=== PATIENT | male | born 1975 | race Caucasian/White ===

== ENCOUNTER 2018-11-27 09:11 | Emergency (ER) | payer MEDICAID, SELFPAY ==
[2018-11-27] VITALS (25 sets, daily range): BP systolic 148–165; BP diastolic 86–106; PULSE 84–98; RESP 9–20; TEMP 37; O2SAT 93–99
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
[2018-11-27] MEDS: Normal Saline 1,000 ML 150 ML IV (09:30)
[2018-11-27 09:33] LABS: Absolute Basophil Count 0.01 k/cumm (0.0-0.2); Absolute Eosinophil Count 0.09 k/cumm (0.0-0.7); Absolute Lymphocyte Count 0.87 k/cumm (1.2-3.4); Absolute Monocyte Count 0.46 k/cumm (0.11-0.7); Absolute Neutrophil Count 4.21 k/cumm (1.2-6.7); Basophils % 0.2; Eosinophils % 1.6; HCT 39.9 % (40.0-50.0); HGB 13.2 g/dL (13.5-17.5); Lymphocytes % 15.4; Mean Corp. HGB Concentration 33.1 g/dL (32.0-36.0); Mean Corpuscular Hemoglobin 29.3 pg (27.0-33.0); Mean Corpuscular Volume 88.7 fL (80-95); Mean Platelet Volume 9.9 fL (8.0-11.0); Monocytes % 8.2; Neutrophils % 74.6; Platelet Count 213 x1000/uL (130-400); RBC Distribution Width 13.8 % (11.8-14.1); White Blood Cell Count 5.64 k/cumm (4.4-10.8)
[2018-11-27 09:53] LABS: ALT 17 U/L (12-78); Albumin 3.3 g/dL (3.4-5.0); Alkaline Phosphatase 100 U/L (46-116); Anion Gap 6.2 mmol/L (3-11); BUN 7 mg/dL (7-18); Bilirubin, Total 0.4 mg/dL (0.2-1.0); CO2 30.8 mmol/L (21.0-32.0); Calcium 8.7 mg/dL (8.5-10.1); Chloride 103 mmol/L (98-107); Glucose 106 mg/dL (70-100); Magnesium 1.9 mg/dL (1.8-2.4); Potassium 3.9 mmol/L (3.5-5.1); Sodium 140 mmol/L (136-145); Total Protein 7.1 g/dL (6.4-8.2)
[2018-11-27 10:00] LABS: ETHANOL BLOOD < 3.0 mg/dL (<3)
[2018-11-27 10:02] LABS: AST < 5 U/L (15-37); Troponin I < 0.05 ng/mL (0.00-0.06)
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
== END 2018-11-27 11:37 | disposition home or self-care (01) ==
PROVIDERS: Emergency Provider Emergency Medicine; PCP Family Medicine
DX: M54.2 Cervicalgia (principal); R07.9 Chest pain, unspecified; V43.52XA Car driver injured in collision with other type car in traffic accident, initial encounter
CPT/HCPCS: 36415; 74177; 80053; 93005; 96360; 96361; 99285; 70450; 71260; 72125; 80320; 83735; 84484; 85025; 93010; 99284

== ENCOUNTER 2021-05-17 17:40 | Emergency (ER) | payer MEDICAID, SELFPAY ==
[2021-05-17 17:44] VITALS: BP 114/69; PULSE 69; TEMP 36.7; O2SAT 97
[2021-05-17 18:25] LABS: Abs Immature Grans 0.02 10^3/uL (0.0-0.06); Absolute Basophil Count 0.03 10^3/uL (0.0-0.2); Absolute Eosinophil Count 0.12 10^3/uL (0.0-0.7); Absolute Lymphocyte Count 0.91 10^3/uL (1.2-3.4); Absolute Monocyte Count 0.49 10^3/uL (0.1-0.8); Absolute Neutrophil Count 5.01 10^3/uL (1.2-6.7); Basophils % 0.5; Eosinophils % 1.8; HCT 49.7 % (40.0-50.0); HGB 16.4 g/dL (13.5-17.5); Immature Grans % 0.3; Lymphocytes % 13.8; MCH 30.3 pg (27.0-33.0); MCV 91.7 fL (80-95); Monocytes % 7.4; Neutrophils % 76.2; Nucleated RBC 0 %; RBC 5.42 10^6/uL (4.36-5.78); RDW 12.1 % (11.8-14.1); RDW-SD 40.8 fL; WBC 6.58 10^3/uL (4.4-10.8)
--- NOTE | 2021-05-17 18:25 | DI.CT_ITS ---
Exam(s) CT ABDOMEN PELVIS WO EXAM: CT ABDOMEN PELVIS WO CLINICAL HISTORY: right flank pain/lumbar pain, urinary retention. TECHNIQUE: Imaging Protocol: Axial computed tomography images with coronal and sagittal reformatted images were created and reviewed CONTRAST MATERIAL: Intravenous: none Oral: None COMPARISON: CT CT CHEST/ABD/PEL W from 11/27/2018 FINDINGS: VISUALIZED LUNG BASES: No nodules nor pleural effusions evident. ABDOMEN: There is no ascites. LIVER: There is an 8 x 8 millimeter cyst in the superior right hepatic lobe, unchanged from the prior study. No other obvious focal hepatic lesions on this non few study and no obvious steatosis. GALLBLADDER/BILIARY: The gallbladder is contracted and difficult to evaluate. There are no calcified gallstones noted. No obvious dilatation of intrahepatic ducts. CBD is not dilated. PANCREAS: No evidence of pancreatic mass nor dilatation of the pancreatic duct. SPLEEN: Spleen is not enlarged. No obvious intrasplenic lesions. ADRENALS: There are no significant adrenal masses. KIDNEYS:Left kidney is unremarkable. There is a 2 millimeter calculus again noted in the lower pole calyx of the right kidney, unchanged. However, the other previously present similar size midpole lev el calculus is no longer seen in the kidney and is most probably passed down the ureter into the blad neil. The sagittal images reveal a tiny hyperdensity in the dependent aspect of the bladder which is possibly this calculus. No cysts nor masses evident in the kidneys, however, there is a focal area o f wall thickening in the posterior wall of the urinary bladder left of center which measures approxim ately 8 by 5 millimeters and may represent early neoplasm. Cystoscopy recommended. ABDOMINAL AORTA: Abdominal aorta is not enlarged. LYMPH NODES: There is no retroperitoneal nor paraaortic adenopathy. ABDOMINAL WALL: There is no anterior abdominal hernia but there does appear to be a fat containing le ft inguinal hernia. No bowel loops within the hernia sac. GI: There is no evidence of bowel obstruction, free air, nor abscess. Slightly prominent but in not obstructive appearing small bowel loops are seen left side of the abdom en, measuring up to 2.4 cm diameter. No free air. PELVIS: LYMPH NODES: There is no intrapelvic nor inguinal adenopathy. GI: No evidence of appendicitis.No evidence of sigmoid diverticulitis. URINARY BLADDER: As above. Cystoscopy recommended. REPRODUCTIVE: Prostate size upper normal. No obturator adenopathy. OSSEOUS: No significant osseous lesions. IMPRESSION: 1. There is a 2 millimeter nonobstructive calculus in lower pole the right kidney, unchanged in size and position from prior CT scan of November 2018. The other similar size tiny calculus which was previou sly present in the right kidney is no longer seen and most probably passed into the urinary bladder. Left kidney appears unremarkable. There is no hydronephrosis on either side. No renal masses. 2. There is a focal area of bladder wall thickening left of center which require cystoscopy to rule o ut neoplasm. 3. Solitary benign 8 millimeter hepatic cyst, previously present 2018. No new ominous focal hepatic lesions. 4. Gallbladder is contracted and difficult to evaluate. There is no dilatation of the biliary tree. 5. There are slightly prominent jejunal loops in left side of the abdomen, difficult to evaluate wit hout oral contrast within the lumen may represent element of enteritis/ileus. There is no obvious donaldo wel obstruction. There is no ascites. RADIATION DOSE DELIVERED: 644.36mGy.cm Total DLP DATA REPOSITORY: All CT scans at this facility are submitted to the National Radiology Data Registry (NRDR) Dose Index Registry (DIR) with the [employer] (A[employer]). RADIATION OPTIMIZATION: All CT scans at this facility use at least one of these dose optimization te chniques: automated exposure control; mA and/or kV adjustment per patient size (includes targeted exa ms where dose is matched to clinical indication); or iterative reconstruction.
[2021-05-17] MEDS: Normal Saline 1,000 ML 1000 ML IV (18:30)
[2021-05-17 18:33] LABS: ALT 20 U/L (16-63); AST 12 U/L (15-37); Albumin 3.9 g/dL (3.4-5.0); Alkaline Phosphatase 97 U/L (46-116); Anion Gap 4.5 mmol/L (3-11); BUN 16 mg/dL (7-18); Bilirubin, Total 0.3 mg/dL (0.2-1.0); C-Reactive Protein 0.08 mg/dL (0.0-0.3); CO2 31.5 mmol/L (21.0-32.0); CREATININE 1.1 mg/dL (0.70-1.30); Calcium 8.9 mg/dL (8.5-10.1); Chloride 103 mmol/L (98-107); Glucose 108 mg/dL (74-106); Lipase 95 U/L (73-393); Potassium 4.8 mmol/L (3.5-5.1); Sodium 139 mmol/L (136-145)
--- NOTE | 2021-05-17 18:56 | SUR.PHASEI ---
pt unable to void pt with 360ml urine residual in bladder
--- NOTE | 2021-05-17 19:13 | ED.GENADUL_ITS ---
Discharge Plan Disposition Patient Disposition: HOME Condition: Stable Discharge Details Clinical Impression: Dysuria Primary Care Provider: Tripp Caldwell ED Provider: Bina Calloway Home Meds and New Rx's Prescriptions: Continued metoprolol succinate 200 mg Tablet Extended Release 24 Hr 200 mg PO DAILY RF: 0 omeprazole 20 mg Capsule,Delayed Release(Dr/Ec) 20 mg PO DAILY RF: 0 gabapentin 400 mg Capsule 400 mg PO DAILY RF: 0 clonidine HCl 0.1 mg Tablet 0.1 mg PO QHS RF: 0 gabapentin 600 mg Tablet Extended Release 24 Hr 1,200 mg PO QPM RF: 0 Discharge Instructions Instructions: Dysuria (ED) Additional Instructions: please follow-up with pcp and urologist for cystoscopy and further evaluation of a mass in your bladder you have not been able to supply a urine speciment and have not been completely evaluated Should you have persistent symptoms in the unable to urinate, you may need a Sun catheter placed, you have declined this at this time Please bring a urine specimen back to the labs here approximately 1 hour after you urinate, do not refrigerate it, use the urine specimen supplied You may also strain your urine Take ibuprofen and Tylenol as needed for pain Referrals: Rakesh Alicea MD [ [facility] STAFF PHYSICIAN] - Tripp Caldwell [Primary Care Provider] - Medical Decision Making Patient moving bowels, no evidence of ileus, nontender abdominal exam No evidence of small bowel Bladder mass, concerning with need for close outpatient follow-up, placed on urology follow-up with Unfortunately patient was unable to give a urine specimen, he states that he is too anxious to give a urine specimen at this time He is alert, oriented, of decisional capacity and is aware that he has not been fully evaluated He is afebrile and nontoxic in appearance It is concerning that patient does have a urinary complaint and is unable to give us a urine specimen, he is aware that he has 400 cc in his bladder and he may continue to retain, did recommend Sun catheter placement versus straight catheterization and patient has declined both He is alert, oriented, of decisional capacity He will need close outpatient follow-up with urology and he is given a urine lab slip to return at his earliest ability He is discharged home in stable lab He is afebrile nontoxic He is aware that he may have passed a stone He is supplied with a strainer for home Medical Records Medical records reviewed: Yes I reviewed the patient's medical records. Lab Data Lab results reviewed: Yes I reviewed the patient's lab results. HPI General Mode of arrival: ambulatory . Date/Time Provider Initiated Documentation: 05/17/21 17:41 . Limitations to Documentation: no limitations . Information obtained by: patient . HPI Narrative: This 46-year-old gentleman presents with right flank pain and difficulty urinating. He states that the pain started on Sunday and has been constant. He denies nausea or vomiting or history of similar pain in the past. He denies any fever or chills. He denies any urethral discharge or risk of sexually transmitted disease. He denies any new medications. He does smoke crack daily. He denies any IV drug use for the past 3 years. He denies any hematuria. He denies any diarrhea. Denies known exacerbating or alleviating factors. Describes the pain as sharp in the right flank. Denies radiation. Related Data Home Medications Medication Instructions Recorded Confirmed clonidine HCl 0.1 mg PO QHS 11/27/18 11/27/18 gabapentin 1,200 mg PO QPM 11/27/18 11/27/18 gabapentin 400 mg PO DAILY 11/27/18 11/27/18 metoprolol succinate 200 mg PO DAILY 05/17/21 05/17/21 omeprazole 20 mg PO DAILY 05/17/21 05/17/21 Allergies Allergy/AdvReac Type Severity Reaction Status Date / Time No Known Allergies Allergy Unverified 05/17/21 17:48 General Stated Complaint: Urinary PRADEEP: 3 Review of Systems All systems reviewed & are unremarkable except as noted in HPI and below PFSH All Active Problems (Updated 05/17/21 @ 20:05 by VALERIA Hill) Dysuria (Acute) Social History Smoking/Tobacco Use Status: Former Tobacco Use Smoking risk assessment performed?: Yes Alcohol Intake: former Drug use: Never Substance use type: former substance user Additional Social history: Patient states he is homeless. Exam Const General: cooperative, comfortable and no acute distress Eyes Sclera: sclerae normal Resp Effort & Inspection: normal respiratory effort Auscultation: clear to auscultation bilaterally Cardio Rate: regular rate Rhythm: regular rhythm GI Other: Nontender abdominal exam, no CVA tenderness, no midline tenderness, no abdominal bruit or pulsatile mass Skin General skin exam: no rashes or lesions noted Neuro General: patient alert and patient oriented x3 Extrem Other: Distal pulses intact, no calf swelling or tenderness Course Vital Signs Vital signs: Vital Signs Temperature 36.7 C 05/17/21 17:44 Pulse 69 05/17/21 17:44 Blood Pressure 114/69 05/17/21 17:44 Pulse Oximetry 97 05/17/21 17:44 Temperature 36.7 C 05/17/21 17:44 Temperature Source Temporal Artery Scan 05/17/21 17:44 Pulse 69 05/17/21 17:44 Respiratory Effort Non-Labored 05/17/21 18:17 Blood Pressure 114/69 05/17/21 17:44 Blood Pressure Position Sitting 05/17/21 17:44 Pulse Oximetry 97 05/17/21 17:44 Oxygen Delivery Method Room Air 05/17/21 17:44 Oxygen Flow Rate 0 05/17/21 17:44 Pain Level 1 05/17/21 17:44 Lab/Test Results Lab/Test Results: Laboratory Tests Range/Units 05/17/21 05/17/21 18:10 18:10 WBC (4.4-10.8) 10^3/uL 6.58 RBC (4.36-5.78) 10^6/uL 5.42 Hgb (13.5-17.5) g/dL 16.4 Hct (40.0-50.0) % 49.7 MCV (80-95) fL 91.7 MCH (27.0-33.0) pg 30.3 MCHC (32.0-36.0) % 33.0 RDW (11.8-14.1) % 12.1 Plt Count (130-400) 10^3/uL MPV (8.0-11.0) fL Immature Gran % 0.3 Neutrophils % 76.2 Lymphocytes % 13.8 Monocytes % 7.4 Eosinophils % 1.8 Basophils % 0.5 Nucleated RBC % % 0 Absolute Neutrophils (1.2-6.7) 10^3/uL 5.01 Absolute Lymphocytes (1.2-3.4) 10^3/uL 0.91 L Absolute Monocytes (0.1-0.8) 10^3/uL 0.49 Absolute Eosinophils (0.0-0.7) 10^3/uL 0.12 Absolute Basophils (0.0-0.2) 10^3/uL 0.03 Sodium (136-145) mmol/L 139 Potassium (3.5-5.1) mmol/L 4.8 Chloride (98-107) mmol/L 103 Carbon Dioxide (21.0-32.0) mmol/L 31.5 Anion Gap (3-11) mmol/L 4.5 BUN (7-18) mg/dL 16 Creatinine (0.70-1.30) mg/dL 1.1 Estimated GFR/1.73 m2 (mL/min/1.73m2) >= 60.00 Glucose (74-106) mg/dL 108 H Calcium (8.5-10.1) mg/dL 8.9 Total Bilirubin (0.2-1.0) mg/dL 0.3 AST (15-37) U/L 12 L ALT (16-63) U/L 20 Alkaline Phosphatase (46-116) U/L 97 C-Reactive Protein (0.0-0.3) mg/dL 0.08 Total Protein (6.4-8.2) g/dL 8.0 Albumin (3.4-5.0) g/dL 3.9 Lipase (73-393) U/L 95
--- NOTE | 2021-05-17 19:19 | DI.VRAD_ITS ---
PROCEDURE INFORMATION: Exam: CT Abdomen And Pelvis Without Contrast Exam date and time: 05/17/2021 6:10 PM Age: 46 years old Clinical indication: Abdominal pain; Generalized; Patient HX: Right flank pain/lumbar pain, urinaty retention. TECHNIQUE: Imaging protocol: Computed tomography of the abdomen and pelvis without contrast. Radiation optimization: All CT scans at this facility use at least one of these dose optimization techniques: automated exposure control; mA and/or kV adjustment per patient size (includes targeted exams where dose is matched to clinical indication); or iterative reconstruction. COMPARISON: CT CHEST/ABD/PEL W 11/27/2018 10:06 AM FINDINGS: Liver: Again noted is a sub cm low-dense lesion within the right hepatic lobe which is too small to characterize but likely represents a benign cyst or biliary hamartoma. Gallbladder and bile ducts: The gallbladder is contracted and is not well evaluated, but there is no evidence for acute gallbladder inflammation. No gallstones are identified. There is no biliary ductal dilatation. Pancreas: Normal. No ductal dilation. Spleen: Normal. No splenomegaly. Adrenal glands: Normal. No mass. Kidneys and ureters: No ureteral stones are identified. There is no hydronephrosis or hydroureter. There is a 2 x 3 mm nonobstructing right lower pole renal stone, unchanged. The prior punctate nonobstructing right renal stone on image 671, series 5 of the prior study is no longer present. Stomach and bowel: There are multiple mildly dilated loops proximal small bowel measuring up to 3 cm diameter, without clear transition point. There is no clear evidence for bowel inflammation. Appendix: No evidence of appendicitis. Intraperitoneal space: Unremarkable. No free air. No significant fluid collection. Vasculature: Unremarkable. No abdominal aortic aneurysm. Lymph nodes: Unremarkable. No enlarged lymph nodes. Urinary bladder: There is a punctate dependent hyperdensity within the posterior aspect of the bladder lumen on image 736, series 3, which could represent a punctate bladder stone. There is a focal region of mild lobular bladder wall thickening having a transverse dimension of 1.3 cm, as seen on axial image 756, series 3, and a craniocaudal dimension of 0.7 cm, as seen on sagittal image 51, series 5. The bladder wall has a thickness of 4 mm in this region. This lesion was not clearly present on prior study and could represent early bladder neoplasm. Reproductive: There is increased mild lobular soft tissue extending anteriorly from the prostate into the posterior midline bladder region around image 800, series 3, suggesting benign prostatic hypertrophy. Bones/joints: Unremarkable. No acute fracture. Soft tissues: Unremarkable. IMPRESSION: 1. Possible punctate bladder stone. There was a punctate right renal stone on prior study that is no longer present, and findings could represent recent passage of this stone into the bladder. There is no hydronephrosis. 2. 2 x 3 mm nonobstructing right renal stone, as on prior study. 3. New focal region of wall thickening of the left posterior aspect of the bladder as described above, could represent early bladder neoplasm. Recommend correlation with cystoscopy. 4. Multiple mildly dilated loops of proximal small bowel, new since prior study, without transition point. Findings could reflect mild enteritis with ileus. Recommend clinical correlation. Dictated and Authenticated by: Fawad Schwab MD. Ordering:ALANIS Curran MD
--- NOTE | 2021-05-17 20:09 | NUR.NOTE ---
Addendum entered by Rosa Maria Yu 05/17/21 20:45: [facility] Urology fax machine not answering after multiple attempts, will put referral in Care Management box to f/u on 05/18/21. Original Note: Referral faxed to [facility] Urology Dr Alicea to f/u pricila for Bladder Mass.Nursing Note:
[2021-05-17 23:20] LABS: Bilirubin Negative (Negative); Blood Negative (Negative); Clarity Cloudy (Clear); Glucose Negative (Negative); Ketones Negative (Negative); Leukocyte Esterase Negative (Negative); Nitrite Negative (Negative); Urobilinogen 0.2 EU/dL (Up TO 0.2); pH 7.5 (5-8)
--- NOTE | 2021-05-18 08:48 | NUR.NOTE ---
[facility] Urology will refer to this note for the referral due to fax machine not working. For [facility] Urology, bladder mass, [place], PCP: Tripp Caldwell; ED Provider: Bina Calloway; home [phone], cell [phone]. Susy Negrete Nursing Note:
== END 2021-05-17 20:12 | disposition home or self-care (01) ==
PROVIDERS: Emergency Provider Physician Assistant; PCP Family Medicine
DX: R30.0 Dysuria (principal); Z53.29 Procedure and treatment not carried out because of patient's decision for other reasons; R10.9 Unspecified abdominal pain; R33.9 Retention of urine, unspecified; N32.89 Other specified disorders of bladder
CPT/HCPCS: 36415; 80053; 83690; 96360; 99284; 74176; 81003; 85025; 86140; 99283

== ENCOUNTER 2024-07-21 02:57 | Inpatient (IN) | payer SELFPAY ==
[2024-07-21] VITALS (47 sets, daily range): BP systolic 166–238; BP diastolic 107–137; PULSE 62–130; RESP 10–29; TEMP 36.2–36.9; O2SAT 91–100
--- NOTE | 2024-07-21 | DI.US_ITS ---
Exam(s) US EXTREMITY VENOUS BI EXAM: US EXTREMITY VENOUS BI CLINICAL HISTORY: PE. TECHNIQUE: Bilateral lower extremity venous ultrasound performed using grayscale, color-flow, and sp ectral Doppler analysis. COMPARISON: No exams were available for comparison FINDINGS: The bilateral common femoral, femoral and popliteal veins demonstrate normal compressibility, augment ation, and color Doppler. The posterior tibial and peroneal veins are patent. No superficial venous thrombosis. IMPRESSION: Right: Negative for DVT Left: Negative for DVT DATA REPOSITORY:
--- NOTE | 2024-07-21 | DI.US_ITS ---
Exam(s) US UPPER EXTREMITY VENOUS LT EXAM: US UPPER EXTREMITY VENOUS LT CLINICAL HISTORY: PE, attn: supraclavicular fossa and volar forearm TECHNIQUE: GRAYSCALE, COLOR, DOPPLER IMAGING OF THE VENOUS SYSTEM OF THE UPPER EXTREMITY-BILATERAL COMPARISON: US POCUS EXAM from 07/21/2024 FINDINGS: There is a short-segment superficial vein thrombosis in the medial cubital fossa/cephalic vein at the level the antecubital fossa. Approximately 1 cm length clot length. Basilic vein: Patent. Normal color-flow and normal compression and augmentation properties. Brachial vein(s):Patent. Normal color flow. Normal compression and augmentation properties. Cephalic vein:Patent. Normal color flow. Normal compression and augmentation properties. Axillary vein: Patent. Normal color flow. Normal compression and augmentation properties. Visualized subclavian vein: Patent. No obvious intraluminal thrombus. IMPRESSION: There is a short segment intraluminal clot approximately 1 cm length within the median cubital vein ( elbow level). DATA REPOSITORY:
--- NOTE | 2024-07-21 02:45 | RT.EKG_ITS ---
APPROVED REPORT Exam: Resting ECG Reason for Exam: chest pain Patient Location: E HR:118 bpm ECG Measurements Heart Rate 118 AXIS CO 153 P 73 QRSd 80 QRS 48 QT 324 T 59 QTc 455 Conclusion Sinus tachycardia...rate> 99 Probable left atrial enlargement...P >50mS, <-0.10mV V1 Probable left ventricular hypertrophy...multiple LVH criteria I have reviewed and interpreted ECG and agree with software generated interpretation.
--- NOTE | 2024-07-21 03:15 | DI.CT_ITS ---
Exam(s) CT THORAX ABD/PEL CTA EXAM: CT THORAX ABD/PEL CTA CLINICAL HISTORY: stabbing RUQ L chest pain, coke use, severe HTN. TECHNIQUE: Imaging Protocol: Axial computed tomography images with coronal and sagittal reformatted images were created and reviewed CONTRAST MATERIAL: Intravenous: Omnipaque 350 Contrast volume:100 ml Oral: None COMPARISON: CT CT ABDOMEN PELVIS WO from 05/17/2021 FINDINGS: CHEST: AORTA: The ascending thoracic aorta is normal diameter. There is no evidence of aortic dissection. The aortic arch and descending thoracic aorta appear unremarkable as does the abdominal aorta. No ev idence of aneurysm nor significant atherosclerotic disease in the abdominal aorta nor at the level th e aortic bifurcation and iliac arteries. No significant atherosclerotic disease in the renal arterie s nor in the celiac, SMA, and DIONICIO arteries. Also no aneurysmal dilatation the aortoiliac segments as well as the common femoral arteries. PULMONARY ARTERIES: There is occlusive intraluminal filling defect in the subsegmental right pulmonar y artery branch in the lateral basal segment of the right lower lobe. There is a pleural based densi ty associated with this consistent with a small area of pulmonary infarction. LUNGS: In addition to the above, there are also mild increased markings in the posterior basal segmen t of the right lower lobe and there is a tiny amount x of right pleural fluid. No significant left l kavon findings. No findings in the trachea and mainstem bronchi. There is no bronchiectasis. MEDIASTINUM: There is no hilar nor mediastinal adenopathy. Visualized thyroid unremarkable. CARDIAC: Heart size is normal. There is no pericardial effusion. Ventricular ratio is 1:1. There i s no prominent reflux of intravenous contrast into the intrahepatic IVC ABDOMEN: There is no evidence of abdominal aortic aneurysm nor dissection.There is no aneurysmal dilatation of the common iliac arteries.The celiac and superior mesenteric arteries are patent. There is no ascites. LIVER: There is a focal subcapsular hypodensity in the right hepatic lobe consistent with a probable benign cyst or hemangioma measuring approximately 1 cm x 1 cm. GALLBLADDER/BILIARY: No obvious gallbladder pathology. CBD is not dilated. PANCREAS: No evidence of pancreatic mass nor dilatation of the pancreatic duct. SPLEEN: Spleen is not enlarged. There are no intrasplenic lesions. Splenic and portal veins are ignacio nt. ADRENALS: There are no significant adrenal masses. KIDNEYS: No cysts evident. No calculi nor hydronephrosis. No solid renal masses. ABDOMINAL AORTA: The abdominal aorta is not enlarged. LYMPH NODES: There is no retroperitoneal nor para-aortic adenopathy. No obvious mesenteric masses. ABDOMINAL WALL: No evidence of significant anterior abdominal wall hernia. GI: There is no evidence of bowel obstruction, free air, nor abscess. PELVIS: LYMPH NODES: There is no intrapelvic nor inguinal adenopathy. GI: No evidence of appendicitis.No evidence of sigmoid diverticulitis. URINARY BLADDER: No calculi nor masses evident REPRODUCTIVE: Prostate size is upper normal. OSSEOUS: No significant osseous lesions. No fractures. IMPRESSION: 1. There is an occlusive subsegmental right lower lobe pulmonary embolus hand there is no associated small pulmonary infarction as described above. There is a tiny ipsilateral right pleural effusion. Also mildly increased markings noted in the posterior basal segment of the right lower lobe. No sign ificant left lung findings. 2. Ventricular ratio in the heart is approximately 1:1 3. No evidence of aortic dissection or pericardial effusion. 4. There is a 1 cm lesion in the right hepatic lobe which has benign appearance, either cyst or heman gioma. Clinically indicated this can be followed up, starting with ultrasound. No other significant findings in the abdomen/pelvis RADIATION DOSE DELIVERED: 541.86mGy.cm Total DLP DATA REPOSITORY: All CT scans at this facility are submitted to the National Radiology Data Registry (NRDR) Dose Index Registry (DIR) with the [employer] (ACR). RADIATION OPTIMIZATION: All CT scans at this facility use at least one of these dose optimization te chniques: automated exposure control; mA and/or kV adjustment per patient size (includes targeted exa ms where dose is matched to clinical indication); or iterative reconstruction.
--- NOTE | 2024-07-21 03:15 | DI.CT_ITS ---
Exam(s) CT HEAD WO EXAM: CT HEAD WO CLINICAL HISTORY: R arm weak, LARRY, HTN, IVDU/cok, eval abscess/stroke. TECHNIQUE: Imaging Protocol: Axial computed tomography images with coronal and sagittal reformatted images were created and reviewed COMPARISON: CT CT HEAD CERVICAL SPINE WO from 11/27/2018 FINDINGS: There are no skull fractures. There is no fluid in the visualized paranasal sinuses. There is no evidence of intracranial hemorrhage, mass effect, or shift of midline structures. There are no extra-axial fluid collections. The ventricles are not enlarged or shifted and there is no blo od within the ventricular system nor within the basal cisterns. IMPRESSION: No acute intracranial findings on this noninfused CT scan of the brain. RADIATION DOSE DELIVERED: 832.41mGy.cm Total DLP DATA REPOSITORY: All CT scans at this facility are submitted to the National Radiology Data Registry (NRDR) Dose Index Registry (DIR) with the [employer] (ACR). RADIATION OPTIMIZATION: All CT scans at this facility use at least one of these dose optimization te chniques: automated exposure control; mA and/or kV adjustment per patient size (includes targeted exa ms where dose is matched to clinical indication); or iterative reconstruction.
--- NOTE | 2024-07-21 03:20 | W.ED.GENAD ---
Discharge Plan Disposition Patient Disposition: Admit to [facility] Condition: Good Discharge Details Chief Complaint: Abd Prob Clinical Impression: Pulmonary embolism, Cellulitis of arm, left, Cellulitis of neck, Active intravenous drug use Primary Care Provider: Tripp Caldwell ED Provider: August Pleitez Home Meds and New Rx's Prescriptions: No Action metoprolol succinate 200 mg Tablet Extended Release 24 Hr 200 mg PO DAILY omeprazole 20 mg Capsule,Delayed Release(Dr/Ec) 20 mg PO DAILY HPI General Date/Time Provider Initiated Documentation: 07/21/24 03:06. HPI Narrative: 49-year-old male with past medical history of IV drug use including fentanyl and cocaine use within the last week, previous kidney stones, presents today for evaluation of right upper quadrant pain. Patient states that about 1 hour prior to arrival he developed severe cramping in the right upper quadrant. He had a single episode of vomiting. Pain seems to come and go in severity. Currently it is mildly achy. He also admitted to a brief episode of left-sided chest discomfort. He denies fever or chills. He does admit to new spot of redness in his left wrist and his left arm, both of which are places near to which she has used IV drugs. He denies any diarrhea. He does admit to chronic headaches. He does admit to hypertension that is uncontrolled. No other complaints at this time. Related Data Home Medications ?Medication ?Instructions ?Recorded ?Confirmed metoprolol succinate 200 mg 200 mg PO DAILY 05/17/21 07/21/24 tablet,extended release 24 hr omeprazole 20 mg capsule,delayed 20 mg PO DAILY 05/17/21 07/21/24 release Allergies Allergy/AdvReac Type Severity Reaction Status Date / Time No Known Allergies Allergy Unverified 07/06/21 13:06 General Stated Complaint: Abd Prob PRADEEP: 3 Exam Narrative Exam Narrative: 1.Const: Well-nourished, Well-developed, appearing stated age 2.Eyes: PERRL, no conjunctival injection, and symmetrical lids. 3.ENT: Atraumatic external nose and ears. Moist MM. Neck: Symmetric, trachea midline, No thyromegaly. Patient demonstrates good movement of cervical neck. There is no nuchal rigidity, no nuchal tenderness. Patient is able to flex the neck without any difficulty or significant pain. Negative Kernig's and Brudzinski sign. 4.CVS: +S1/S2, Peripheral pulses 2+ and equal in all extremities. Brisk capillary refill in all extremities. 5.RESP: Unlabored respiratory effort. Clear to auscultation bilaterally. No wheezes rales or rhonchi 6.GI: Soft, no guarding or rebound. Mild right upper quadrant tenderness. Positive Yoo sign. No pain McBurney's point. 7.MSK: Normocephalic/Atraumatic, Extremities w/o deformity or ttp No cyanosis or clubbing, Normal movement of all extremities 8.Skin: Warm, Dry. Oval shaped area of erythema on the ventral left wrist. No fluctuance to suggest abscess. Mild redness area of erythema on the left neck, no fluctuance to suggest large abscess. 9.Neuro: data entry assistant II-XII grossly intact. Sensation grossly intact, no focal neurologic deficits. 10.Psych: (AAO) x3. Appropriate mood and affect Course Vital Signs Vital signs: Vital Signs Temperature 36.4 C 07/21/24 03:01 Pulse 113 H 07/21/24 03:01 Respiratory Rate 24 07/21/24 03:01 Blood Pressure 212/115 H 07/21/24 03:01 Pulse Oximetry 97 07/21/24 03:01 Temperature 36.4 C 07/21/24 03:01 Temperature Source Oral 07/21/24 03:01 Pulse 117 H 07/21/24 03:10 Pulse 118 H 07/21/24 03:10 Respiratory Rate 18 07/21/24 03:10 Blood Pressure 212/115 H 07/21/24 03:05 Blood Pressure Mean 146 07/21/24 03:05 Blood Pressure Position Supine 07/21/24 03:01 Pulse Oximetry 97 07/21/24 03:10 Oxygen Delivery Method Room Air 07/21/24 03:01 Oxygen Flow Rate 0 07/21/24 03:01 Pain Level 10 07/21/24 03:05 Procedure EJ/Peripheral IV/Phlebotomy Date of Procedure: 07/21/24 Time of Procedure: 05:28 Indication: Nursing/tech could not get IV Skin Cleansed in Sterile Fashion: Yes Laterality: Left Insertion Site: Antecubital Size & Type: 18 ga. Number ofAttempts(See previous attempts in note section): 1 Dressing: IV Dressing Placed and Tegaderm Applied Ultrasound: Used/Image Saved Estimated Blood Loss: minimal Reason for Blood Draw by Provider: RN/lab vladislav and MD to place line Procedure Outcome: Successful Medical Decision Making 49-year-old male with past medical history of IV drug use including fentanyl and cocaine use within the last week, previous kidney stones, presents today for evaluation of right upper quadrant pain. Patient states that about 1 hour prior to arrival he developed severe cramping in the right upper quadrant. He had a single episode of vomiting. Pain seems to come and go in severity. Currently it is mildly achy. He also admitted to a brief episode of left-sided chest discomfort. He denies fever or chills. He does admit to new spot of redness in his left wrist and his left arm, both of which are places near to which she has used IV drugs. He denies any diarrhea. He does admit to chronic headaches. He does admit to hypertension that is uncontrolled. No other complaints at this time. Exam demonstrates right upper quadrant tenderness which is reproducible, mild redness in the left wrist and left neck. No murmur is auscultated well at this time. Symptoms do not appear consistent with endocarditis at this time. Differential is broad for the abdomen, but includes cholecystitis, biliary colic. Vascular pathology is of concern especially with the patient's crack cocaine use. Patient is notably hypertensive right now which could be secondary to his cocaine use but also pain or underlying hypertension. Will get imaging of these concerning areas, evaluate for cardiac dysfunction or strain, treat his pain, check for kidney stone, monitor closely and reassess. 5:25 AM Laboratory workup has returned, no white count or bandemia. No electrolyte abnormality. Troponins are normal, CT scan returned and does not show any abnormality for the abdomen or pelvis, however there is evidence of pulmonary embolus with associated pulmonary infarct in the lateral right costophrenic area. There is also slight right ventricular enlargement compared to the left, which may be secondary to mild strain. Portable Limited bedside ultrasound did not show evidence of severe strain. With the patient's cellulitis, and this evidence of PE I am concerned for potential septic emboli. He is afebrile here. We got inflammatory markers, and ESR and CRP are both mildly elevated but not excessively high. Pending procalcitonin. Pending proBNP. Serial troponins are normal. We will start heparin for the patient, out of concern for potential bacterial source, we will start the patient on vancomycin for coverage of MRSA staph and strep. Patient will be heparinized. I do feel that the patient would benefit from formal echo. Did contact the hospitalist Dr. Cain, he agrees with the assessment and plan. Patient will be admitted for further evaluation and management. I have extensively reviewed the treatment plan with the patient. I have addressed all patient concerns at this time. I have also discussed the plan with the admitting physician and they agree with the current assessment and plan and have agreed to assume responsibility for the patient. All parties demonstrate verbal understanding and agreement with our assessment and plan at this time. The documentation in this chart was dictated using [id number] dictation software. Please excuse any dictation errors. Pulmonary arteries: There is an acute occlusive subsegmental right lower lobe pulmonary embolus (image 45/series 12) with small associated pulmonary infarction in the lateral right costophrenic sulcus. Aorta: Normal aorta. Celiac trunk and mesenteric arteries: No occlusion or significant stenosis. Renal arteries: No occlusion or significant stenosis. Right iliac arteries: No occlusion or significant stenosis. Left iliac arteries: No occlusion or significant stenosis. CHEST: Lungs: Unremarkable. No consolidation. No masses. Pleural spaces: Trace right pleural effusion. Heart: Heart size is normal; however, the right ventricle is larger in caliber than the left and there is fairly convincing paradoxical bowing of the interventricular septum of the heart, findings which suggest right heart strain. Esophagus: Esophagus is unremarkable. ABDOMEN AND PELVIS: Liver: No mass. Gallbladder and biliary ducts: Unremarkable. No calcified stones. No ductal dilation. Pancreas: Unremarkable. No mass. No ductal dilation. Spleen: Unremarkable. No splenomegaly. Adrenal glands: Unremarkable. No mass. Kidneys and ureters: Unremarkable. No solid mass. No hydronephrosis. Stomach and bowel: No pneumatosis or portal/mesenteric venous gas. No bowel wall thickening or intestinal obstruction. Appendix: No evidence of appendicitis. Intraperitoneal space: No pneumoperitoneum or abscess. Urinary bladder: Unremarkable. No mass. Reproductive: Unremarkable as visualized. Lymph nodes: Unremarkable. No enlarged lymph nodes. Bones/joints: Unremarkable. No acute fracture. Soft tissues: Unremarkable. IMPRESSION: 1. There is an acute occlusive subsegmental right lower lobe pulmonary embolus (image 45/series 12) with small associated pulmonary infarction in the lateral right costophrenic sulcus. 2. Heart size is normal; however, the right ventricle is larger in caliber than the left and there is fairly convincing paradoxical bowing of the interventricular septum of the heart, findings which suggest right heart strain. 3. Trace right pleural effusion. Thank you for allowing us to participate in the care of your patient. FINDINGS: Brain: Normal. No hemorrhage or edema. Cerebral ventricles: No ventriculomegaly. Paranasal sinuses: Visualized sinuses are unremarkable. No fluid levels. Mastoid air cells: Unremarkable. Bones: Unremarkable. No acute fracture. Soft tissues: Unremarkable. IMPRESSION: No acute intracranial abnormality. Thank you for allowing us to participate in the care of your patient. Quality:[facility] Health Related Social Needs: No Data to Display Critical Care Time Critical Care Time Critical Care Time: Yes Total Critical Care Time: 45 Attestation: Upon my evaluation, this patient had a high probability of imminent or life-threatening deterioration, which required my direct attention, intervention, and personal management. I have personally provided 45 minutes of critical care time exclusive of time spent on separately billable procedures. Time includes review of laboratory data, radiology results, discussion with consultants, and monitoring for potential decompensation. Interventions were performed as documented. PFSH All Active Problems (Updated 07/21/24 @ 05:31 by August Pleitez DO) Active intravenous drug use (Acute) Cellulitis of neck (Acute) Cellulitis of arm, left (Acute) Pulmonary embolism (Chronic) Kidney stones (Chronic) Social History Smoking/Tobacco Use Status: Former Tobacco Use Smoking risk assessment performed?: Yes Alcohol Intake: former Drug use: Never Substance use type: marijuana, crack/cocaine and heroin Details: fentanyl last use 7 hour ago 07/21/24 Do you feel safe at home: Yes Do you feel safe in your relationship?: Yes POCUS Exam (ED) Limited Cardiac Exam DATE OF EXAM: 07/21/24 TIME OF EXAM: 05:29 PROVIDER THAT PERFORMED THE STUDY: August Pleitez IS THIS A REPEAT EXAM DURING THIS ENCOUNTER: no REASON FOR EXAM: Chest pain VISUALIZED STRUCTURES: Left atrium, Left ventricle, Right ventricle and Interventricular septum VIEW OBTAINED: Parasternal long-axis PERTINENT FINDINGS/IMPRESSION: Other (Questionable minimal enlargement of the right ventricle, no evidence of severe heart strain) Exam complete
[2024-07-21 03:27] LABS: Abs Immature Grans 0.05 10^3/uL (0.0-0.06); Absolute Basophil Count 0.04 10^3/uL (0.0-0.2); Absolute Eosinophil Count 0.11 10^3/uL (0.0-0.7); Absolute Lymphocyte Count 1.24 10^3/uL (1.2-3.4); Absolute Monocyte Count 0.89 10^3/uL (0.1-0.8); Absolute Neutrophil Count 8.37 10^3/uL (1.2-6.7); Basophils % 0.4 %; HCT 43.8 % (40.0-50.0); Immature Grans % 0.5 %; Lymphocytes % 11.6 %; MCH 27.6 pg (27.0-33.0); MCV 86 fL (80-95); MPV 9.7 fL (8.0-11.0); Monocytes % 8.3 %; Neutrophils % 78.2 %; Platelet Count 341 10^3/uL (130-400); RBC 5.08 10^6/uL (4.36-5.78); RDW 13.1 % (11.8-14.1); RDW-SD 41.1 fL
[2024-07-21] MEDS: HYDROmorphone 2 MG/ML SYR 1 MG IVP ×4 (03:28→20:42)
[2024-07-21] MEDS: ACETAMINOPHEN 1,000 MG/100 ML BAG 400 MG IVPB (03:28)
[2024-07-21] MEDS: Normal Saline 1,000 ML 1000 ML IV (03:28)
[2024-07-21 03:38] LABS: ALT 25 U/L (16-63); AST 16 U/L (15-37); Albumin 3.9 g/dL (3.4-5.0); Alkaline Phosphatase 128 U/L (46-116); BUN 13 mg/dL (7-18); Bilirubin, Direct 0.1 mg/dL (0.0-0.2); Bilirubin, Total 0.32 mg/dL (0.2-1.0); CREATININE 1.1 mg/dL (0.70-1.30); Calcium 9.6 mg/dL (8.5-10.1); Chloride 100 mmol/L (98-107); Estimated GFR 83.32 (mL/min/1.73m2); Glucose 98 mg/dL (74-106); Lipase 18 U/L (<78); Sodium 143 mmol/L (136-145); Total Protein 8.9 g/dL (6.4-8.2); Troponin I 13 ng/L (<or=76)
[2024-07-21] MEDS: Omnipaque 350 MG/ML 100 ML BTL IJ ×2 (03:43→03:44)
[2024-07-21] MEDS: Normal Saline - Diluent 50 ML VIAL IJ (03:44)
--- NOTE | 2024-07-21 04:06 | DI.VRAD_ITS ---
PROCEDURE INFORMATION: Exam: CT Head Without Contrast Exam date and time: 07/21/2024 3:52 AM Age: 49 years old Clinical indication: Stroke-like symptoms; Headache; Additional info: R arm weak, LARRY, HTN, ivdu/cok, eval abscess/stroke TECHNIQUE: Imaging protocol: Computed tomography of the head without contrast. Radiation optimization: All CT scans at this facility use at least one of these dose optimization techniques: automated exposure control; mA and/or kV adjustment per patient size (includes targeted exams where dose is matched to clinical indication); or iterative reconstruction. Other technique: STROKE PROTOCOL was implemented. COMPARISON: CT HEAD CERVICAL SPINE WO 11/27/2018 9:50 AM FINDINGS: Brain: Normal. No hemorrhage or edema. Cerebral ventricles: No ventriculomegaly. Paranasal sinuses: Visualized sinuses are unremarkable. No fluid levels. Mastoid air cells: Unremarkable. Bones: Unremarkable. No acute fracture. Soft tissues: Unremarkable. IMPRESSION: No acute intracranial abnormality. Dictated and Authenticated by: Igor Archer MD. Orderin Maik Koch MD
--- NOTE | 2024-07-21 04:39 | DI.VRAD_ITS ---
Addendum created by Igor Archer MD on 07/21/2024 4:43:45 AM EST: Findings discussed with MELVA CABALLERO MD at time of interpretation. Initial report created on 07/21/2024 4:39:00 AM EST: PROCEDURE INFORMATION: Exam: CTA Chest With Contrast CTA Abdomen and Pelvis With Contrast Exam date and time: 07/21/2024 3:54 AM Age: 49 years old Clinical indication: Left-sided; Abdominal pain; Localized; Right upper quadrant (ruq); Stabbing ruq \T\ L chest pain, coke use, severe HTN TECHNIQUE: Imaging protocol: Computed tomographic angiography of the chest with contrast. Exam focused on the arteries. Computed tomographic angiography of the abdomen and pelvis with contrast. Exam focused on the arteries. 3D rendering (Not supervised by radiologist): MIP and/or 3D reconstructed images were created by the technologist. Radiation optimization: All CT scans at this facility use at least one of these dose optimization techniques: automated exposure control; mA and/or kV adjustment per patient size (includes targeted exams where dose is matched to clinical indication); or iterative reconstruction. Contrast material: OMNIPAQUE 350; Contrast volume: 100 ml; Contrast route: INTRAVENOUS (IV); COMPARISON: CT CHEST/ABD/PEL W 11/27/2018 10:06 AM FINDINGS: VASCULATURE: Pulmonary arteries: There is an acute occlusive subsegmental right lower lobe pulmonary embolus (image 45/series 12) with small associated pulmonary infarction in the lateral right costophrenic sulcus. Aorta: Normal aorta. Celiac trunk and mesenteric arteries: No occlusion or significant stenosis. Renal arteries: No occlusion or significant stenosis. Right iliac arteries: No occlusion or significant stenosis. Left iliac arteries: No occlusion or significant stenosis. CHEST: Lungs: Unremarkable. No consolidation. No masses. Pleural spaces: Trace right pleural effusion. Heart: Heart size is normal; however, the right ventricle is larger in caliber than the left and there is fairly convincing paradoxical bowing of the interventricular septum of the heart, findings which suggest right heart strain. Esophagus: Esophagus is unremarkable. ABDOMEN AND PELVIS: Liver: No mass. Gallbladder and biliary ducts: Unremarkable. No calcified stones. No ductal dilation. Pancreas: Unremarkable. No mass. No ductal dilation. Spleen: Unremarkable. No splenomegaly. Adrenal glands: Unremarkable. No mass. Kidneys and ureters: Unremarkable. No solid mass. No hydronephrosis. Stomach and bowel: No pneumatosis or portal/mesenteric venous gas. No bowel wall thickening or intestinal obstruction. Appendix: No evidence of appendicitis. Intraperitoneal space: No pneumoperitoneum or abscess. Urinary bladder: Unremarkable. No mass. Reproductive: Unremarkable as visualized. Lymph nodes: Unremarkable. No enlarged lymph nodes. Bones/joints: Unremarkable. No acute fracture. Soft tissues: Unremarkable. IMPRESSION: 1. There is an acute occlusive subsegmental right lower lobe pulmonary embolus (image 45/series 12) with small associated pulmonary infarction in the lateral right costophrenic sulcus. 2. Heart size is normal; however, the right ventricle is larger in caliber than the left and there is fairly convincing paradoxical bowing of the interventricular septum of the heart, findings which suggest right heart strain. 3. Trace right pleural effusion. Dictated and Authenticated by: Igor Archer MD. Orderin Maik Koch MD
[2024-07-21 04:46] LABS: Troponin I 9 ng/L (<or=76)
[2024-07-21 04:54] LABS: PTT Activated 28.6 sec (20.6-30.2); Prothrombin Time 10.2 sec (9.1-11.1)
[2024-07-21] MEDS: Heparin in 0.45% NaCl 25,000 UNIT/250 ML BAG 15 UNIT IVINF ×2 (05:00→17:52)
[2024-07-21 05:02] LABS: ESR 18 mm/hr (0-15)
[2024-07-21 05:20] LABS: C-Reactive Protein 1.25 mg/dL (<or=0.5)
[2024-07-21 05:25] LABS: Bilirubin Negative (Negative); Blood Trace-intact (Negative); Clarity Clear (Clear); Glucose Negative (Negative); Ketones Negative (Negative); Leukocyte Esterase Negative (Negative); Nitrite Negative (Negative); Specific Gravity 1.015 (1.005-1.025); Urobilinogen 0.2 mg/dL (Up to 0.2)
[2024-07-21 05:28] LABS: Procalcitonin 0.12 ng/mL
[2024-07-21 05:28] LABS: NT-proBNP 65 pg/mL (<300)
[2024-07-21 05:33] LABS: Bacteria Rare HPF (Negative); C & S Indicated? No; Casts Negative LPF (Negative); Crystals Negative HPF (Negative); Epithelial Cells Rare HPF (Negative); Mucus Negative (Negative); RBC 0-2 HPF (0-2)
--- NOTE | 2024-07-21 05:40 | HPE_ITS ---
Date of service: 07/21/24 Time of Service: 05:40 Assessment and Plan Assessment and plan (1) Pulmonary embolism: Status: Chronic Assessment and plan: PE. Two issues remain unresolved. First, is this an infectious process; viz, septic embolus from either SBE or perhaps septic phlebitis; second, the CTA indicates possible right heart strain, but the exam and labs are not suggestive of such, nor is bedside POCUS. On balance I favor that this is not present. 1. PE: heparin and Vanco; will obtain formal ECHO to look for SBE and/or signs of strain; would also suggest duplex to scan for phlebitis LUE, and to formally rule out DVT LEs, though exam does not suggest this. 2. HTN: patient states this is a known diagnosis and it is not being treated. Will begin Amlodipine 2.5 qd 3. IVDA: consider initiation Methadone or Suboxone History of Present Illness History of Present Illness Chief Complaint: CP Narrative: 49 male with h/o HTN, IVDA, here with sudden onset diffuse myalgia and then, what he described to ER as RUQ pain but to me reports as right side CP. He cannot characterize the pain further but notes it is worse with deep breathing. No Fever or SOB. In ER findings of note for absence of fever, and two areas of cellulitis at injection sites -- one in left supraclavicular fossa, one right volar forearm white count 10, CTA chest and abdomen showing subsegmental PE/infarct RLL. The RV was noted to be enlarged with bowing, suggestive of strain. The abdominal portion of the scan was unremarkable. EKG shows sinus tach with LVH, and normal axis; trop negative x2; CRP 1.25. BNP is pending. Bedside POCUS did not show right heart strain. Patient started on heparin and given loading dose Vanco. I was asked to evaluate for admission. Review of Systems Narrative: per HPI PFSH All Active Problems Active intravenous drug use (Acute) Cellulitis of neck (Acute) Cellulitis of arm, left (Acute) Pulmonary embolism (Chronic) Kidney stones (Chronic) Social History Smoking/Tobacco Use Status: Former Tobacco Use Smoking risk assessment performed?: Yes Alcohol Intake: former Drug use: Never Substance use type: marijuana, crack/cocaine and heroin Details: fentanyl last use 7 hour ago 07/21/24 Do you feel safe at home: Yes Do you feel safe in your relationship?: Yes Meds Allergies and Home Medications Allergies Allergy/AdvReac Type Severity Reaction Status Date / Time No Known Allergies Allergy Unverified 07/06/21 13:06 Home Medications ?Medication ?Instructions ?Recorded ?Confirmed ?Type metoprolol succinate 200 mg 200 mg PO DAILY 05/17/21 07/21/24 History tablet,extended release 24 hr omeprazole 20 mg capsule,delayed 20 mg PO DAILY 05/17/21 07/21/24 History release Exam Narrative Exam Narrative: 183/107, 87, 36.4, 16, 98% RA. HEENT atraumatic; neck supple, JVP hard to read but appears approx 5-6 cm; lungs clear; quinonez RRR w/o mrg, no RV heave; abdomen soft and NT; extremities w/o edema, claves NT, negative Adriano's; neuro Ox3, moves all 4s; skin: crusted area of erythema approx 2 cm left supraclavicular fossa, I do not appreciate any cord, and mild cellulitis left volar forearm Results Labs 07/21/24 03:05 07/21/24 03:05 Labs: Laboratory Results - last 24 hr 07/21/24 07/21/24 07/21/24 03:05 04:11 05:13 WBC 10.70 RBC 5.08 Hgb 14.0 Hct 43.8 MCV 86 MCH 27.6 MCHC 32.0 RDW 13.1 Plt Count 341 MPV 9.7 Immature Gran % 0.5 Neutrophils % 78.2 Lymphocytes % 11.6 Monocytes % 8.3 Eosinophils % 1.0 Basophils % 0.4 Nucleated RBC % 0.0 Absolute Neutrophils 8.37 H Absolute Lymphocytes 1.24 Absolute Monocytes 0.89 H Absolute Eosinophils 0.11 Absolute Basophils 0.04 ESR 18 H PT 10.2 INR 1.0 APTT 28.6 Sodium 143 Potassium 4.0 Chloride 100 Carbon Dioxide 36.0 H Anion Gap 7.0 BUN 13 Creatinine 1.1 Est GFR (CKD-EPI 2020) 83.32 Glucose 98 Calcium 9.6 Total Bilirubin 0.32 Conjugated Bilirubin 0.1 AST 16 ALT 25 Alkaline Phosphatase 128 H Troponin I 13 9 C-Reactive Protein 1.25 H Total Protein 8.9 H Albumin 3.9 Lipase 18 Procalcitonin 0.12 Urine Color Yellow Urine Clarity Clear Urine pH 7.0 Ur Specific [place] 1.015 Urine Protein Negative Urine Ketones Negative Urine Blood Trace-intact H Urine Nitrite Negative Urine Bilirubin Negative Urine Urobilinogen 0.2 Ur Leukocyte Esterase Negative Urine RBC 0-2 Urine WBC 3-5 Ur Epithelial Cells Rare Urine Crystals Negative Urine Bacteria Rare Urine Casts Negative Urine Mucus Negative Ur Culture Indicated? No Urine Glucose Negative 07/21/24 06:18 WBC RBC Hgb Hct MCV MCH MCHC RDW Plt Count MPV Immature Gran % Neutrophils % Lymphocytes % Monocytes % Eosinophils % Basophils % Nucleated RBC % Absolute Neutrophils Absolute Lymphocytes Absolute Monocytes Absolute Eosinophils Absolute Basophils ESR PT INR APTT Sodium Potassium Chloride Carbon Dioxide Anion Gap BUN Creatinine Est GFR (CKD-EPI 2020) Glucose Calcium Total Bilirubin Conjugated Bilirubin AST ALT Alkaline Phosphatase Troponin I Cancelled C-Reactive Protein Total Protein Albumin Lipase Procalcitonin Urine Color Urine Clarity Urine pH Ur Specific [place] Urine Protein Urine Ketones Urine Blood Urine Nitrite Urine Bilirubin Urine Urobilinogen Ur Leukocyte Esterase Urine RBC Urine WBC Ur Epithelial Cells Urine Crystals Urine Bacteria Urine Casts Urine Mucus Ur Culture Indicated? Urine Glucose Last Vital Signs Temp 36.4 C 07/21/24 03:01 Pulse 87 07/21/24 05:33 Resp 16 07/21/24 05:33 BP 183/107 H 07/21/24 05:33 Pulse Ox 98 07/21/24 05:33 Time Spent Time spent with Patient: 55-74 minutes Time was spent: preparing to see the patient(eg.review tests), obtaining and/or reviewing separately otained hiistory, ordering medications,tests, procedures, referring, communicating with other health progressive care nurse and indepentently interpreting results
[2024-07-21 06:19] LABS: COVID-19 PCR Negative (Negative); Influenza A PCR Negative (Negative); Influenza B PCR Negative (Negative); RSV PCR Negative (Negative)
[2024-07-21 07:00] LABS: Source Nasopharynx
[2024-07-21] MEDS: amLODIPine 5 MG TAB PO (08:24)
--- NOTE | 2024-07-21 08:37 | W.NUTRFU ---
Date of service: 07/21/24 Time of Service: 08:37 Nutrition Note NOTE: 49yo male admitted with Pulm emobolism, cellulitis of left arm and neck (IVDA). Pt currently homeless. Nutrition-related labs wnl. Ordered for regular diet with normal consistencies. Admitted 2 hours ago - will monitor po intake. Time Spent in Nutritional Counseling and Treatment: 0
[2024-07-21 08:45] LABS: *AMPHETAMINES SCREEN URINE Negative (Negative); *BARBITURATES SCREEN URINE Negative (Negative); *BENZODIAZEPINES SCREEN URINE Negative (Negative); Cannabinoids THC Negative (Negative); Cocaine Screen,Urine Positive (Negative); METHADONE URINE SCREEN Negative (Negative); OPIATES URINE SCREEN Negative (Negative)
[2024-07-21 08:47] LABS: Tricyclic Antidepressants Negative (Negative)
--- NOTE | 2024-07-21 09:07 | INITIAL_ITS ---
Date of service: 07/21/24 Time of Service: 09:07 Care Management Initial Assmt Initial Assessment Reason for Hospitalization: Cellulites, IV drug use Functional Status/Living Situation Patient Presentation: Mercedes was sitting up in the side of his bed when CM met with him. He is appropriate and easily engages in conversation. At this time he is homeless, unemployed and going through a divorce. He has 4 children, and has been able to maintain a relationship with the older 2 stating they saw the best version of him, when the were growing up. He has a long history of substance abuse and has been to several treatment facilities, and the one that works for him is a peggy based rehab called the [facility] in [place]. In time, he intends to go back. Mercedes has tried Methodone and Suboxone and did not find them helpful. He is familiar with [facility] and [facility]. Mercedes shared that he usually leaves AMA, when he starts withdrawing. Town of Residence: Homeless, was staying with a friend in [place] Employment Status: Unemployed Instrumental Activities of Daily Living (ADLs): Independent Advance Directives Advance Directives: Do you have an Advance Directive: N 07/21/24 02:57 AD On File at [facility]: N 07/21/24 02:57 Date Asked 07/21/24 07/21/24 04:54 AD Date Reviewed COLST On File at [facility] COLST Date Scanned Code Status Resuscitation Status Full Code Portal Pt does not currently have a portal and education provided: Yes Insurance Coverage/Financial Issues Insurance: Medicaid Care Team Visit Care Team Role Provider Type Tripp Caldwell Primary Care Provider NON-[facility] STAFF PHYSICIAN August Pleitez DO Emergency Provider [facility] STAFF PHYSICIAN Kenyon Cain MD Admit Provider [facility] STAFF PHYSICIAN Attending Provider Discharge Potential Discharge Needs: PCP F/U Appt Anticipated Barriers to Discharge: Medical Status Patient/Family Education Needs: Review discharge instructions, discuss Ask Me Three Transportation: Private vehicle Plan: Anticipate, Mercedes will discharge from [facility] when medically ready. Recommendation will be to follow up with his PCP and discharge plan of care. CM will continue to support and provide sobriety and SDOH resources. CM will place a [facility] referral, if agreeable. Social Determinants of Health Screening Social Determinants of Health last assessed: 07/21/24 Will the Patient Participate in the Screening?: Yes Do you worry about having a steady place to live?: yes What is your living situation today?: I do not have steady housing Problems where you live: no known problems In the past 12 months, have you had to go without electric, gas, oil or water in your home?: no Have you or anyone in your house had to go without enough food to eat?: yes 1. Within the past 12 months, we worried whether our food would run out before we got money to buy more.: Sometimes true 2. Within the past 12 months, the food we bought just didn't last and we didn't have money to get more.: Sometimes true Referred to:: [facility] Has lack of transportation kept you from medical appointments or from doing things needed for daily living?: no Has anyone in your life made you feel unsafe or unsupported?: no How hard is it for you to pay for the very basics like food, housing, medical care, and heating? Would you say it is:: Somewhat hard Do you want help finding or keeping work or a job?: Yes, help keeping work If for any reason you need help with day-to-day activities such as bathing, preparing meals, shopping, managing finances, etc., do you get the help you need?: I could use a little more help How often do you feel lonely or isolated from those around you?: Rarely Do you speak a language other than Niuean at home?: No Does the patient want assistance with any of the above?: No Social Determinants of Health Comments(SDPA Details): Pt states he is homeless. Health Related Social Needs Health related social needs: housing instability, housed, with risk of homelessness (Z59.811), food insecurity (Z59.41), problems related to housing/economic circumstances (Z59.89), problems finding work (Z56.9), problems with daily activities (Z73.9) and feeling lonely/isolated (Z60.8) PFSH All Active Problems Active intravenous drug use (Acute) Cellulitis of neck (Acute) Cellulitis of arm, left (Acute) Pulmonary embolism (Chronic) Kidney stones (Chronic) Social History Smoking/Tobacco Use Status: Former Tobacco Use Smoking risk assessment performed?: Yes Alcohol Intake: former Drug use: Never Substance use type: marijuana, crack/cocaine and heroin Details: fentanyl last use 7 hour ago 07/21/24 Housing: homeless Do you feel safe at home: Yes Do you feel safe in your relationship?: Yes
[2024-07-21] MEDS: Acetaminophen 500 MG TAB 1000 MG PO (10:29)
--- NOTE | 2024-07-21 10:47 | W.PC.ACHO ---
Registration Status: Primary Language: Preferred Language: ED Information & Data Chief Complaint Abd Prob 07/21/24 03:24 Triage Note sudden onset severe cramping 07/21/24 03:01 RUQ about 1 hour prior to arrival. 1 episode of vomiting. no abdominal surgeries. Denies CP, SOB. Pain comes in waves. cellulitis on L arm, believes he got bit by a spider yesterday Most Recent Vital Signs Temperature 36.9 C 07/21/24 08:26 Temperature Source Oral 07/21/24 03:01 Pulse 110 H 07/21/24 10:00 Pulse Rhythm Regular 07/21/24 08:26 Pulse 88 07/21/24 06:50 Respiratory Rate 18 07/21/24 08:26 Respiratory Effort Normal, Non-Labored 07/21/24 08:26 Respiratory Depth Normal 07/21/24 08:26 Respiratory Pattern Normal 07/21/24 08:26 Blood Pressure 187/111 H 07/21/24 10:00 Blood Pressure Mean 145 07/21/24 06:46 Blood Pressure Position Supine 07/21/24 03:01 Pulse Oximetry 99 07/21/24 08:26 Oxygen Delivery Method Room Air 07/21/24 10:00 Oxygen Flow Rate 0 07/21/24 10:00 Pain Level 7 07/21/24 10:29 Allergies No Known Allergies Allergy (Unverified 07/06/21 13:06) Precautions Isolation Standard precaution 07/21/24 03:05 Active Medications Generic Name Dose Route Start Last Admin Trade Name Freq PRN Reason Stop Dose Admin Acetaminophen 1,000 mg 07/21/24 09:54 07/21/24 10:29 Acetaminophen 500 Mg Tab PO 1,000 mg Q6H PRN PRN Administration Amlodipine Besylate 5 mg 07/21/24 08:30 07/21/24 08:24 Amlodipine 5 Mg Tab PO 5 mg DAILY ROMI Administration Heparin Sodium/Sodium Chloride 25,000 unit in 250 mls @ 15 mls/hr 07/21/24 04:45 07/21/24 05:00 IVINF 1,500 units/hr INFUSION ROMI 15 mls/hr Administration Protocol 1,500 UNITS/HR IV IV Catheter Type [Left Forearm Saline Lock ] IV Catheter Type [Right Peripheral IV Antecubital] IV Catheter Gauge [Left 18 Forearm] IV Catheter Gauge [Right 18 Antecubital] Diet Orders Category Date Time Status Regular/Normal [DIET] Nutrition 07/21/24 Breakfast Active Diagnostics 07/21/24 07/21/24 07/21/24 Range/Units 11:00 06:18 05:38 WBC (4.4-10.8) 10^3/uL RBC (4.36-5.78) 10^6/uL Hgb (13.5-17.5) g/dL Hct (40.0-50.0) % MCV (80-95) fL MCH (27.0-33.0) pg MCHC (32.0-36.0) % RDW (11.8-14.1) % Plt Count (130-400) 10^3/uL MPV (8.0-11.0) fL Immature Gran % % Neutrophils % % Lymphocytes % % Monocytes % % Eosinophils % % Basophils % % Nucleated RBC % (0.0-0.3) % Absolute Neutrophils (1.2-6.7) 10^3/uL Absolute Lymphocytes (1.2-3.4) 10^3/uL Absolute Monocytes (0.1-0.8) 10^3/uL Absolute Eosinophils (0.0-0.7) 10^3/uL Absolute Basophils (0.0-0.2) 10^3/uL ESR (0-15) mm/hr PT (9.1-11.1) sec INR (0.9-1.1) APTT Pending (20.6-30.2) sec Sodium (136-145) mmol/L Potassium (3.5-5.1) mmol/L Chloride (98-107) mmol/L Carbon Dioxide (21.0-32.0) mmol/L Anion Gap (3-11) mmol/L BUN (7-18) mg/dL Creatinine (0.70-1.30) mg/dL Est GFR (CKD-EPI 2020) (mL/min/1.73m2) Glucose (74-106) mg/dL Calcium (8.5-10.1) mg/dL Total Bilirubin (0.2-1.0) mg/dL Conjugated Bilirubin (0.0-0.2) mg/dL AST (15-37) U/L ALT (16-63) U/L Alkaline Phosphatase (46-116) U/L Troponin I Cancelled (<or=76) ng/L C-Reactive Protein (<or=0.5) mg/dL NT-Pro-B Natriuret Pep (<300) pg/mL Total Protein (6.4-8.2) g/dL Albumin (3.4-5.0) g/dL Lipase (<78) U/L Procalcitonin ng/mL Urine Color (Yellow) Urine Clarity (Clear) Urine pH (5-8) Ur Specific [place] (1.005-1.025) Urine Protein (Neg-Trace) mg/dL Urine Ketones (Negative) mg/dL Urine Blood (Negative) Urine Nitrite (Negative) Urine Bilirubin (Negative) Urine Urobilinogen (Up to 0.2) mg/dL Ur Leukocyte Esterase (Negative) Urine RBC (0-2) HPF Urine WBC (0-5) HPF Ur Epithelial Cells (Negative) HPF Urine Crystals (Negative) HPF Urine Bacteria (Negative) HPF Urine Casts (Negative) LPF Urine Mucus (Negative) Ur Culture Indicated? Urine Glucose (Negative) mg/dL Urine Opiates Screen (Negative) Urine Methadone Screen (Negative) Ur Barbiturates Screen (Negative) Ur Tricyclics Screen (Negative) Ur Amphetamines Screen (Negative) U Benzodiazepines Scrn (Negative) Urine Cocaine Screen (Negative) Ur THC Screen (Negative) COVID-19 Source Nasopharynx SARS-CoV-2 (PCR) Negative (Negative) Influenza Type A (PCR) Negative (Negative) Influenza Type B (PCR) Negative (Negative) RSV (PCR) Negative (Negative) 07/21/24 07/21/24 07/21/24 Range/Units 05:13 04:11 03:05 WBC 10.70 (4.4-10.8) 10^3/uL RBC 5.08 (4.36-5.78) 10^6/uL Hgb 14.0 (13.5-17.5) g/dL Hct 43.8 (40.0-50.0) % MCV 86 (80-95) fL MCH 27.6 (27.0-33.0) pg MCHC 32.0 (32.0-36.0) % RDW 13.1 (11.8-14.1) % Plt Count 341 (130-400) 10^3/uL MPV 9.7 (8.0-11.0) fL Immature Gran % 0.5 % Neutrophils % 78.2 % Lymphocytes % 11.6 % Monocytes % 8.3 % Eosinophils % 1.0 % Basophils % 0.4 % Nucleated RBC % 0.0 (0.0-0.3) % Absolute Neutrophils 8.37 H (1.2-6.7) 10^3/uL Absolute Lymphocytes 1.24 (1.2-3.4) 10^3/uL Absolute Monocytes 0.89 H (0.1-0.8) 10^3/uL Absolute Eosinophils 0.11 (0.0-0.7) 10^3/uL Absolute Basophils 0.04 (0.0-0.2) 10^3/uL ESR 18 H (0-15) mm/hr PT 10.2 (9.1-11.1) sec INR 1.0 (0.9-1.1) APTT 28.6 (20.6-30.2) sec Sodium 143 (136-145) mmol/L Potassium 4.0 (3.5-5.1) mmol/L Chloride 100 (98-107) mmol/L Carbon Dioxide 36.0 H (21.0-32.0) mmol/L Anion Gap 7.0 (3-11) mmol/L BUN 13 (7-18) mg/dL Creatinine 1.1 (0.70-1.30) mg/dL Est GFR (CKD-EPI 2020) 83.32 (mL/min/1.73m2) Glucose 98 (74-106) mg/dL Calcium 9.6 (8.5-10.1) mg/dL Total Bilirubin 0.32 (0.2-1.0) mg/dL Conjugated Bilirubin 0.1 (0.0-0.2) mg/dL AST 16 (15-37) U/L ALT 25 (16-63) U/L Alkaline Phosphatase 128 H (46-116) U/L Troponin I 9 13 (<or=76) ng/L C-Reactive Protein 1.25 H (<or=0.5) mg/dL NT-Pro-B Natriuret Pep 65 (<300) pg/mL Total Protein 8.9 H (6.4-8.2) g/dL Albumin 3.9 (3.4-5.0) g/dL Lipase 18 (<78) U/L Procalcitonin 0.12 ng/mL Urine Color Yellow (Yellow) Urine Clarity Clear (Clear) Urine pH 7.0 (5-8) Ur Specific [place] 1.015 (1.005-1.025) Urine Protein Negative (Neg-Trace) mg/dL Urine Ketones Negative (Negative) mg/dL Urine Blood Trace-intact H (Negative) Urine Nitrite Negative (Negative) Urine Bilirubin Negative (Negative) Urine Urobilinogen 0.2 (Up to 0.2) mg/dL Ur Leukocyte Esterase Negative (Negative) Urine RBC 0-2 (0-2) HPF Urine WBC 3-5 (0-5) HPF Ur Epithelial Cells Rare (Negative) HPF Urine Crystals Negative (Negative) HPF Urine Bacteria Rare (Negative) HPF Urine Casts Negative (Negative) LPF Urine Mucus Negative (Negative) Ur Culture Indicated? No Urine Glucose Negative (Negative) mg/dL Urine Opiates Screen Negative (Negative) Urine Methadone Screen Negative (Negative) Ur Barbiturates Screen Negative (Negative) Ur Tricyclics Screen Negative (Negative) Ur Amphetamines Screen Negative (Negative) U Benzodiazepines Scrn Negative (Negative) Urine Cocaine Screen Positive A (Negative) Ur THC Screen Negative (Negative) COVID-19 Source SARS-CoV-2 (PCR) (Negative) Influenza Type A (PCR) (Negative) Influenza Type B (PCR) (Negative) RSV (PCR) (Negative) 07/21/24 05:05 Blood Culture - Pending Blood 07/21/24 04:50 Blood Culture - Pending Blood Intake and Output - 24 Hour Total 07/21/24 02:57 thru 07/21/24 09:32 Intake Total 1620 Balance 1620 Weight 80.1 kg Intake: IV 1620 Other: Urine Appearance Clear Falls Risk Assessment History of Falls No History 07/21/24 08:26 Contributing Factors No Factors 07/21/24 08:26 Ambulatory Aids Independent 07/21/24 08:26 Tubes/Lines W/no contributing factors 07/21/24 08:26 Gait Evaluation No gait disturbance 07/21/24 08:26 Cognition No cognitive impairment 07/21/24 08:26 Fall Total Score 10 07/21/24 08:26 Level of Risk Standard/Low Risk 07/21/24 08:26 Problems (Last Reviewed 07/21/24 @ 05:48 by Kenyon Cain MD) Active intravenous drug use (Acute) Cellulitis of neck (Acute) Cellulitis of arm, left (Acute) Pulmonary embolism (Chronic) v v v v v v v v v Sending and/or Receiving Nurses: Please use comment section below to note any information pertinent to the patient hand-off not included above. Information / Comments: Admit paged at [phone], report called for at [phone]. Pt admitted for PE, [place] 18 G AC, IV heparin running, next PTT at 1100. Report received from: Jackie Nettles ED RN
[2024-07-21 11:43] LABS: PTT Activated 68.1 sec (20.6-30.2)
[2024-07-21] MEDS: VANCOMYCIN 1,000 MG in Normal Saline 250 ML 250 MG IVPB (17:52)
[2024-07-21 18:25] LABS: PTT Activated 42.9 sec (20.6-30.2)
[2024-07-22 00:57] LABS: PTT Activated 80.9 sec (20.6-30.2)
[2024-07-22] MEDS: VANCOMYCIN 1,000 MG in Normal Saline 250 ML 250 MG IVPB (06:00)
[2024-07-22 07:32] LABS: PTT Activated 68.2 sec (20.6-30.2)
[2024-07-22] MEDS: Heparin in 0.45% NaCl 25,000 UNIT/250 ML BAG 16.5 UNIT IVINF ×2 (07:46→21:41)
[2024-07-22] MEDS: HYDROmorphone 2 MG/ML SYR 1 MG IVP ×2 (07:48→22:02)
[2024-07-22] MEDS: amLODIPine 5 MG TAB PO (07:48)
[2024-07-22 08:19] VITALS: BP 162/112; PULSE 86; RESP 14
[2024-07-22 08:27] VITALS: TEMP 36.9
--- NOTE | 2024-07-22 08:30 | DI.US_ITS ---
APPROVED REPORT EXAM: Comprehensive 2D, Doppler, and color-flow Echocardiogram Patient Location: In-Patient Washing Tub Operator: Angi Harrison RT (R) (CT) RDCS Rhythm: NSR Indications: PE, ? tricuspid SBE Other Information Study Quality: Fair Conclusion Mild concentric left ventricular hypertrophy. Ejection fraction is 70%. Wall motion is normal Normal right ventricular size and function Both atria are normal in size There are no structural valvular abnormalities Mild mitral regurgitation Estimated right ventricular systolic pressure is 36 mmHg Wall motion Left Ventricle The left ventricle is normal size. The left ventricular systolic function is normal. The left ventric ular ejection fraction is within the normal range. Mild concentric left ventricular hypertrophy. Wall motion scoring is all normal. The left ventricular diastolic function is normal. There is no ventric ular septal defect visualized. LVEF is 70%. Right Ventricle The right ventricle is normal size. The right ventricular systolic function is normal. There is ruthann l right ventricular wall thickness. Atria The left atrium size is normal. The right atrium size is normal. The interatrial septum is intact wit h no evidence for an atrial septal defect. Aortic Valve The aortic valve is normal in structure. There is no aortic valvular stenosis. No aortic regurgitatio n is present. There is no aortic valvular vegetation. Mitral Valve The mitral valve is normal in structure. No evidence of mitral valve stenosis. There is no mitral cherrie ve regurgitation noted. There is no evidence of mitral valve vegetations. Tricuspid Valve The tricuspid valve is normal in structure. There is no tricuspid valve stenosis. Mild tricuspid regu rgitation. There is no tricuspid valve vegetations. Pulmonic Valve The pulmonary valve is normal in structure. Best seen subcostally. There is no pulmonic valvular sten osis. Trace pulmonic regurgitation. There is no pulmonic valve vegetations. Great Vessels The aortic root is normal in size. The pulmonary artery is normal. The ascending aorta is normal in s ize. The IVC is dilated and collapses >50% with inspiration. Pericardium There is no pericardial effusion. There is no pleural effusion. 2D Dimensions IVSD d PLAX 1.38 cm M: 0.6-1.2 Ao Root d 3.24 cm M: 3.1 - 3.7 LVPW d PLAX 1.36 cm M: 0.6 - 1.2 Ao Asc Diam d 3.52 cm LVID d PLAX 4.14 cm M: 4.2 - 5.8 Prox Ao Arch 3.0 cm LVDs 2.50 cm M: 2.5 - 4.0 RVID Mid Diam 3.13 cm LV EF Teichholz 70.7 % RVID Base Diam (A4C) 3.34 cm (M/F) 2.5-4.1 FS 39.72 % IVC Diam exp d SLAX 2.3 cm LV EDV (Teich) 76.1 mL LV ESV (Teich) 22.3 mL M-Mode TAPSE 1.98 cm (M/F) >1.7 LV Volumes - Method of Disks (Powell's) Single Plane 2D LV Volumes Biplane 2D LV Volumes LV EDV A4C 92.8 mL LV EDV BP 101.37 mL LV ESV A4C 29.0 mL LV ESV BP 29.3 mL LVEF(%) A4C 68.8 % LVEF(%) BP 71.06 % LV EDV A2C 105.7 mL LV EDV BP Index 51.19 mL/m2 M: 34 - 74 LV ESV A2C 29.2 mL SV BP LVEF(%) A2C 72.4 % SV Index LV Strain Long Pk Overal Avg (s) 18.16 RV Strain Global Peak Long. Strain A4C 21.23 Global Peak Long. Strain A4C FW 26.73 LA Volume LA Length A4C 4.4 cm LA Length A2C 5.1 cm LA Area A4C s 11.69 cm2 LA Area A2C s 16.76 cm2 LA Vol A4C A-L 26.20 mL LA Vol A2C A-L 46.61 mL LA Vol Biplane A-L 37.6 mL LA Vol/BSA A4C A-L LA Vol/BSA A2C A-L LA Vol/BSA BP A-L 19.0 mL/m2 LA Vol A4C MOD 23.6 mL LA Vol A2C MOD 43.6 mL LA Vol BP MOD 34.4 mL LV Diastology MV E' medial 0.070 (>0.07 m/s) MV E Vmax 0.78 (0.4-1.3 m/s) MV E/E' MED 11.09 (<14) MV A Vmax 0.70 (0.4-1.3 m/s) MV E' lateral 0.078 (>0.1 m/s) E/A Ratio 1.05 MV E/E' LAT 9.95 (<14) MV E' Average 0.074 m/s MV E/E'(average) 10.48 Aortic Valve LVOT Vmax 1.31 m/s LVOT Peak Grad 6.9 mmHg LVOT VTI 0.228 m LVOT Mean Grad 3.3 mmHg LVOT SV 114.62 mL LVOT Diam s 2.50 cm Mitral Valve MV DT 209 (160-240 msec) Pulm Vein s 0.64 m/s Pulm Vein d 0.27 m/s Pulm Vein a 0.25 m/s Tricuspid Valve RA Pressure 8.00 mmHg TR Vmax 2.63 m/s TV S' 0.15 m/s TR Peak Grad 27.7 mmHg RVSP (TR) 35.8 mmHg
--- NOTE | 2024-07-22 10:00 | PDOC.CMPRO ---
Date of service: 07/22/24 Time of Service: 10:00 Care Management Progress Note Progress Note Text Progress Note Text: Mercedes has cellulites in his right arm and is currently receiving IV Vanco, cultures are pending. He was standing in his room when CM met with him and planning to discharge today on PO abx.He is polite and engages in conversation, and shares that his anxiety heightens each time the door to his room open. He does not feel being in the hospital is the right place for him and is currently lining up a stable place to stay. He has a long history of IV drug use and had tried suboxone and methodone in the past, and they are not right for him. He does not want inpatient treatment and is not interested in talking with a [employer] Operator. He is familiar with community resources and his truck is in the parking lot. Discharge Potential Discharge Needs: PCP F/U Appt Anticipated Barriers to Discharge: None Identified Patient/Family Education Needs: Review discharge instructions, discuss Ask Me Three Transportation: Private vehicle Plan: Anticipate, Mercedes will discharge from [facility] when medically ready. Recommendation will be to follow up with his PCP and discharge plan of care as prescribed. Patient declines Recovery Resources at this time and is familiar with [facility] and other community resources. Social Determinants of Health Screening Social Determinants of Health last assessed: 07/22/24 Will the Patient Participate in the Screening?: Yes Do you worry about having a steady place to live?: yes What is your living situation today?: I do not have steady housing Problems where you live: no known problems In the past 12 months, have you had to go without electric, gas, oil or water in your home?: no Have you or anyone in your house had to go without enough food to eat?: yes 1. Within the past 12 months, we worried whether our food would run out before we got money to buy more.: Sometimes true 2. Within the past 12 months, the food we bought just didn't last and we didn't have money to get more.: Sometimes true Referred to:: [employer] Has lack of transportation kept you from medical appointments or from doing things needed for daily living?: no Has anyone in your life made you feel unsafe or unsupported?: no How hard is it for you to pay for the very basics like food, housing, medical care, and heating? Would you say it is:: Somewhat hard Do you want help finding or keeping work or a job?: Yes, help keeping work If for any reason you need help with day-to-day activities such as bathing, preparing meals, shopping, managing finances, etc., do you get the help you need?: I could use a little more help How often do you feel lonely or isolated from those around you?: Rarely Do you speak a language other than Welsh at home?: No Does the patient want assistance with any of the above?: No Social Determinants of Health Comments(SDOH Details): Pt states he is homeless. Health Related Social Needs Health related social needs: housing instability, housed, with risk of homelessness (Z59.811), food insecurity (Z59.41), problems related to housing/economic circumstances (Z59.89), problems finding work (Z56.9), problems with daily activities (Z73.9) and feeling lonely/isolated (Z60.8)
[2024-07-22 11:05] VITALS: BP 161/109; PULSE 92; RESP 14; TEMP 36.8; O2SAT 96
[2024-07-22 15:04] VITALS: BP 141/62; RESP 14; TEMP 36; O2SAT 98
--- NOTE | 2024-07-22 15:43 | PDOC.CMDIS ---
Date of service: 07/22/24 Time of Service: 15:43 LACE Index Scoring Tool Questions: Length of Stay (in days): 2 Was the patient admitted via the E.D.?: Yes E.D. Visits: 1 Answers: Total Score: 6 Risk of Readmission: Low Risk Care Management Discharge Plan Reason for Hospitalization: Cellulites Discharge Plan: Mercedes is medically ready for discharge and is agreeable. The recommendation is to follow up with his PCP and discharge plan of care as directed. He is familiar with [facility] and other community resources. He is not interested in inpatient treatment or meeting with a Out Patient Therapist at this time. Patient/Family Education Needs: Review discharge instructions and plan to follow up after discharge. Discuss ask me three. SDOH Health Related Social Needs: Health related social needs housing instability, housed, with risk of homelessness (Z59.811), food insecurity (Z59.41), problems related to housing/economic circumstances (Z59.89), problems finding work (Z56.9), problems with daily activities (Z73.9), feeling lonely/isolated (Z60.8)
--- NOTE | 2024-07-22 16:07 | PHA.REVIEW2 ---
Pharmacy Admission Review Admission Clinical Review Admission Pharmacy Review: (Updated 07/21/24 @ 05:31 by August Pleitez DO) Active intravenous drug use (Acute) Cellulitis of neck (Acute) Cellulitis of arm, left (Acute) No Known Allergies Allergy (Unverified 07/06/21 13:06) Resuscitation Status Full Code Height 5 ft 10 in Weight 80.1 kg Pharmacy Admission Review Renal Dosing Renal Dosing: BUN 13 mg/dL (7-18) 07/21/24 03:05 Creatinine 1.1 mg/dL (0.70-1.30) 07/21/24 03:05 Medications needing adjustments: Reviewed (CrCl 94 mL/min) List of meds needing interventions: Current medications are okay Anticoagulation Anticoagulation: Hgb 14.0 g/dL (13.5-17.5) 07/21/24 03:05 Hct 43.8 % (40.0-50.0) 07/21/24 03:05 Plt Count 341 10^3/uL (130-400) 07/21/24 03:05 INR 1.0 (0.9-1.1) 07/21/24 03:05 Creatinine 1.1 mg/dL (0.70-1.30) 07/21/24 03:05 Therapeutic Anticoagulation: Reviewed (aPTT 68.2 today at 0655) Medications: Heparin (infusion at 16.5 ml/hr) Opiate Usage Evaluate Pain Scale/Pains Meds: Reviewed (hydromorphone 1mg IVP q4h PRN - 2mg / 24hrs) Scheduled Bowel Reg ordered if on Opiates?: No Relevant Labs Relevant Labs: ESR 18 mm/hr (0-15) H 07/21/24 03:05 Sodium 143 mmol/L (136-145) 07/21/24 03:05 Potassium 4.0 mmol/L (3.5-5.1) 07/21/24 03:05 Chloride 100 mmol/L (98-107) 07/21/24 03:05 C-Reactive Protein 1.25 mg/dL (<or=0.5) H 07/21/24 03:05 Electrolytes, C-Reactive P, ESR: Reviewed (No new labs for today) Cardiac Review Cardiac Review: Troponin I Cancelled 07/21/24 06:18 NT-Pro-B Natriuret Pep 65 pg/mL (<300) 07/21/24 04:11 Blood Pressure 141/62 1504 Blood Pressure 161/109 1105 Blood Pressure 162/112 0819 BP, HR, EF%: Reviewed (HR 92) List meds needing interventions: Has order for amlodipine 5mg daily QTc Review QTc: Reviewed (455 from 07/21/24) IV to PO Switch IV Medications: Reviewed (heparin, hydromorphone and vancomycin) Home Meds Home Med List reviewed: Reviewed Relevent Home Meds Not ordered & why?: No known home meds Current Meds Current Medication Order Review: Intervened Comments: Added IV admission order set Pharmacy Antibiotic Review Relevant Labs: WBC 10.70 10^3/uL (4.4-10.8) 07/21/24 03:05 Procalcitonin 0.12 ng/mL 07/21/24 03:05 Temperature 36.0 C Temperature 36.8 C Temperature 36.9 C Microbiology 07/21/24 04:50 Blood Culture - Preliminary Blood NO GROWTH 24 HOURS 07/21/24 05:05 Blood Culture - Preliminary Blood NO GROWTH 24 HOURS Pharmacy Antibiotic Activity: C/S review and Reviewed, no change Comments: Patient is on vancomycin 1000mg q12h, day 2, for possible infectious PE. Current vancomycin dose gives estimated AUC of 532 and trough of 17. Level ordered today at 1430 (prior to 4th dose). Will adjust dose as needed based on level. Provider discussed possible switch to PO today but has not happened yet so ordered level.
[2024-07-22 18:00] LABS: Vancomycin, Random 8.2 ug/mL
--- NOTE | 2024-07-22 18:55 | NUR.NOTE ---
Vancomycin due at 1830. Order changed from 1000 mg to 1250 mg. Pharmacy gone home. Advised Cynthia Sal RN night lead nurse note to call maid housekeeper and will have antibiotic re-timed once it is ready
--- NOTE | 2024-07-22 19:09 | W.PM.PROGNOT ---
Date of Service Date of service: 07/22/24 Time of Service: 15:20 Assessment and Plan Assessment and plan (1) Pulmonary embolism: Status: Chronic Assessment and plan: Treating with heparin. Plan to transition to oral apixaban if covered to prepare for discharge. No evidence of tricuspid endocarditis or clot on DEEP (2) Cellulitis of arm, left: Status: Acute Assessment and plan: Improving on vancomycin. Only small superficial clot on ultrasounds. Continue, transition to oral after 48 hr for discharge if cultures negative. He is willing to stay for the 48 hours (3) Opioid use disorder: Status: Acute Assessment and plan: With active IVDU. He has had periods of abstainence while on methadone and suboxone, also without. He doesn't want to commit to medication assisted treatment, declines induction, even low dose. He doesn't look like he is getting severe withdrawal symtpoms. We did discuss treatment facilities, had bad experience with [facility]. For now supportive care for any withdrawal symtoms. I did give him prn lorazepam as adjuvant just while he is here. Subjective Subjective Patient reports: no new complaints, tolerating a regular diet, voiding w/o difficulty and diarrhea; denies nausea, vomiting, shortness of breath or fever Interval history since last seen: Arm swelling and pain getting better. No chest pain in mid chest, but pain in right lower chest/RUQ with breathing is sharp, severe at times. Not more SOB. Exam Narrative Exam Narrative: GEN: Alert and oriented, NAD, lungs clear, normal effort. heart RRR w/o mrg; abdomen soft and NT; extremities w/o edema, not tender. Red slightly tender swollen area left forearm. Nl movement of arms. Objective Last Vital Signs Temp 36.0 C L 07/22/24 15:04 Pulse 92 H 07/22/24 11:05 Resp 14 07/22/24 15:04 BP 141/62 H 07/22/24 15:04 Pulse Ox 98 07/22/24 15:04 Laboratory Results - last 24 hr 07/22/24 07/22/24 07/22/24 00:25 06:55 14:30 APTT 80.9 H* 68.2 H Cancelled Random Vancomycin 07/22/24 17:30 APTT Random Vancomycin 8.2 Time Spent with Patient Time Spent with Patient: 35-49 minutes Time was spent: preparing to see the patient(eg.review tests), obtaining and/or reviewing separately otained hiistory, ordering medications,tests, procedures, referring, communicating with other health home day care provider, indepentently interpreting results, counseling the patient and care coordination
[2024-07-22 19:40] VITALS: BP 170/122; PULSE 85; RESP 18; TEMP 36.5; O2SAT 96
--- NOTE | 2024-07-22 21:24 | DSE_ITS ---
DS: Diagnosis Discharge Diagnosis (1) Pulmonary embolism: Start date: 07/21/24 Status: Acute (2) Cellulitis of arm, left: Start date: 07/21/24 Status: Acute (3) Opioid use disorder: Status: Chronic Discharge Plan Disposition Patient Disposition: Home Discharge Details Reason For Visit: PE, cellulitis Admit Date/Time: 07/21/24 06:02 Admit Provider: Kenyon Cain Attending Provider: Kenyon Cain Primary Care Provider: Tripp Caldwell Home Meds and New Rx's Prescriptions: New apixaban 5 mg tablet 5 mg PO BID Qty: 180 0RF apixaban 5 mg tablet 10 mg PO BID 7 Days Qty: 28 0RF Discharge Instructions Instructions: Pulmonary Embolism (Blood Clot in the Lungs) (DC) Additional Instructions: take the apixaban 2 tablets twice a day for 1 week, then one tab twice a day for at least 3 months. this is to dissolve the blood clot DS: Summary Quality:SDOH Health Related Social Needs: Health related social needs housing instability, house d, with risk of homelessness (Z59.811), food insecurity (Z59.41), problems related to housing/economic circumstances (Z59.89), problems finding work (Z56.9), problems with daily activities (Z73.9), feeling lonely/isolated (Z60.8) DS: Data Vitals/I&O Vitals and I&O: Vital Signs Temperature 36.5 C 07/22/24 19:40 Temperature Source Temporal Artery Scan 07/22/24 19:40 Pulse 85 07/22/24 19:40 Pulse Rhythm Regular 07/21/24 08:26 Pulse 88 07/21/24 06:50 Respiratory Rate 18 07/22/24 19:40 Respiratory Effort Normal, Non-Labored 07/21/24 08:26 Respiratory Depth Normal 07/21/24 08:26 Respiratory Pattern Normal 07/21/24 08:26 Blood Pressure 170/122 H 07/22/24 19:40 Blood Pressure Mean 145 07/21/24 06:46 Blood Pressure Position Supine 07/21/24 03:01 Pulse Oximetry 96 07/22/24 19:40 Oxygen Delivery Method Room Air 07/22/24 19:40 Oxygen Flow Rate 0 07/22/24 19:40 Pain Level 5 03/04/25 19:40 Intake & Output 07/21/24 07/22/24 07/22/24 23:59 11:59 23:59 Intake Total 467.00 / 2087.00 696.425 / 696.425 Output Total 300 / 500 Balance 167.00 / 1587.00 696.425 / 696.425 Intake: IV 467.00 / 2087.00 696.425 / 696.425 Output: Urine 300 / 500 Other: Urine Color Yellow Yellow Yellow Urine Appearance Clear Clear Clear Urine Odor Normal Normal Normal Comment Pt reports that he has been taking himself to the restroom. Patient voided ind. in the toilet. Patient voided ind. in the toilet. Stool Size Moderate Stool Characteristics Soft Formed Data Completed and Pending Labs on day of discharge: Labs from last 24 hours 07/22/24 07/22/24 07/22/24 17:30 14:30 06:55 APTT Cancelled 68.2 H Random Vancomycin 8.2 07/22/24 00:25 APTT 80.9 H* Random Vancomycin Preliminary micro results at discharge 07/21/24 04:50 Blood Culture - Preliminary Blood NO GROWTH 24 HOURS 07/21/24 05:05 Blood Culture - Preliminary Blood NO GROWTH 24 HOURS PFSH All Active Problems (Updated 07/22/24 @ 21:25 by Kenyon Godwin) Opioid use disorder (Chronic) Active intravenous drug use (Acute) Cellulitis of neck (Acute) Cellulitis of arm, left (Acute) Pulmonary embolism (Acute) Kidney stones (Chronic) Social History Smoking/Tobacco Use Status: Former Tobacco Use Smoking risk assessment performed?: Yes Alcohol Intake: former Drug use: Never Substance use type: marijuana, crack/cocaine and heroin Details: fentanyl last use 7 hour ago 07/21/24 Housing: homeless Do you feel safe at home: Yes Do you feel safe in your relationship?: Yes
[2024-07-22] MEDS: VANCOMYCIN 1,250 MG in Normal Saline 250 ML 166.667 MG IVPB (22:01)
[2024-07-22] MEDS: Normal Saline Flush 10 ML SYR IVP (22:02)
[2024-07-23 07:50] LABS: PTT Activated 49.4 sec (20.6-30.2)
[2024-07-23 08:38] VITALS: BP 160/95; PULSE 83; RESP 18; TEMP 36.4; O2SAT 98
[2024-07-23 10:45] VITALS: BP 167/107; PULSE 90; RESP 18; TEMP 37; O2SAT 96
[2024-07-23] MEDS: Normal Saline Flush 10 ML SYR IVP (10:51)
[2024-07-23] MEDS: VANCOMYCIN/WATER (PEG) 1.25 GM/250 ML BAG IVPB (10:52)
[2024-07-23] MEDS: amLODIPine 5 MG TAB PO (10:57)
--- NOTE | 2024-07-23 15:02 | W.PM.DS.N ---
Date of service: 07/23/24 Time of Service: 15:02 DS: Diagnosis Discharge Diagnosis (1) Pulmonary embolism: Status: Acute (2) Cellulitis of arm, left: Status: Acute (3) Opioid use disorder: Status: Chronic Discharge Plan Disposition Patient Disposition: Home Condition: Good Discharge Details Reason For Visit: PE, cellulitis Admit Date/Time: 07/21/24 06:02 Admit Provider: Kenyon Cain Attending Provider: Kenyon Cain Primary Care Provider: Tripp Caldwell Hospital Course Hospital Course: 49 yo M with opioid use disorder and active IVDU presented with sudden pleuritic RUQ abdominal/chest pain. CTA chest/abdomen showed RLL pulmonary embolus with infarct. CT showed signs of right heart strain but POCUS and later echocardiogram did not. There were no valvular vegetations or other abnormalities on echocardiogram. He was started on heparin drip. His symptoms did improve. He was transitioned to apixaban and discharged with 3 months. He also had multiple red tender areas on his right arm in area of injections. He was started on vancomycin. His blood cultures were negative after 48+ hours. Vascular ultrasound showed a short segment intraluminal clot approximately 1 cm length within the median cubital vein (elbow level). There was no DVT in the lower extremities. His skin findings improved greatly on antibiotics and heparin. He was discharged on 5 more days of TMP/SMX DS twice a day. Options were reviewed for treatment of his substance use disorder. He declined treatment with suboxone or methadone or rehabilitation placement. Home Meds and New Rx's Prescriptions: New apixaban 5 mg tablet 5 mg PO BID Qty: 180 0RF apixaban 5 mg tablet 10 mg PO BID 7 Days Qty: 28 0RF sulfamethoxazole-trimethoprim [Bactrim DS] 800-160 mg tablet 1 tab PO BID 5 Days Qty: 10 0RF amlodipine 5 mg Tablet 5 mg PO DAILY Qty: 60 0RF acetaminophen 500 mg Tablet 1,000 mg PO Q6H PRN PRNQty: 100 0RF Discharge Instructions Instructions: Pulmonary Embolism (Blood Clot in the Lungs) (DC) Additional Instructions: take the apixaban 2 tablets twice a day for 1 week, then one tab twice a day for at least 3 months. this is to dissolve the blood clot take the antibiotics for 5 more days Stand Alone Forms: Nursing Discharge Form Referrals: Mercedes Mederos MD [ [facility] STAFF PHYSICIAN] - (I will be getting ahold of the office and will call you with an appointment today or tomorrow when the office returns my call. ) Activity:: Activity as Tolerated Equipment/Supplies:: No Equipment Needed Diet:: As Tolerated Discharge Orders Discharge Orders: Discharge Order (Routine); Ordered 07/23/24 Ordered By: Fawad Hurst Discharge Data Discharge Date/Time-TO BE ENTERED AT DEPARTURE: 07/23/24 16:30 DS: Summary Time Spent with Patient providing and/or coordinating discharge services: Greater than 30 minutes Status at Discharge Functional status at discharge: independent ambulation Overall status at discharge: patient is progressing back to baseline Mental Status: mental status grossly normal Speech and Movement: speech and movement normal Mood: congruent mood Affect: normal affect Quality:SDOH Health Related Social Needs: Health related social needs housing instability, housed, with risk of homelessness (Z59.811), food insecurity (Z59.41), problems related to housing/economic circumstances (Z59.89), problems finding work (Z56.9), problems with daily activities (Z73.9), feeling lonely/isolated (Z60.8) Exam Narrative Exam Narrative: GEN: Alert and oriented, NAD, lungs clear, normal effort. heart RRR w/o mrg; abdomen soft and NT; extremities w/o edema, not tender. left forearm redness resolved. Nl movement of arms. Psych Mental Status: mental status grossly normal Speech and Movement: speech and movement normal Mood: congruent mood Affect: normal affect DS: Data Vitals/I&O Vitals and I&O: Vital Signs Temperature 37 C 07/23/24 10:45 Temperature Source Temporal Artery Scan 07/23/24 10:45 Pulse 90 07/23/24 10:45 Pulse Rhythm Regular 07/21/24 08:26 Pulse 88 07/21/24 06:50 Respiratory Rate 18 07/23/24 10:45 Respiratory Effort Normal, Non-Labored 07/21/24 08:26 Respiratory Depth Normal 07/21/24 08:26 Respiratory Pattern Normal 07/21/24 08:26 Blood Pressure 167/107 H 07/23/24 10:45 Blood Pressure Mean 145 07/21/24 06:46 Blood Pressure Position Supine 07/21/24 03:01 Pulse Oximetry 96 07/23/24 10:45 Oxygen Delivery Method Room Air 07/23/24 08:38 Oxygen Flow Rate 0 07/23/24 08:38 Pain Level 4 07/23/24 10:45 Comment RN was present for vitals 07/23/24 10:45 Intake & Output 07/22/24 07/23/24 07/23/24 23:59 11:59 23:59 Intake Total 1067.25 / 1763.675 500.0 / 500.0 Balance 1067.25 / 1763.675 500.0 / 500.0 Intake: IV 467.25 / 1163.675 500.0 / 500.0 Oral 600 / 600 Other: Urine Color Yellow Yellow Urine Appearance Clear Clear Urine Odor Normal Normal Comment Patient voided ind. in the toilet. Patient voided in the toilet ind. Data Completed and Pending Labs on day of discharge: Labs from last 24 hours 07/23/24 07/23/24 07/22/24 18:00 07:28 17:30 APTT 49.4 H Random Vancomycin Pending 8.2 Preliminary micro results at discharge 07/21/24 04:50 Blood Culture - Preliminary Blood NO GROWTH 48 HOURS 07/21/24 05:05 Blood Culture - Preliminary Blood NO GROWTH 48 HOURS PFSH All Active Problems (Updated 07/22/24 @ 21:25 by Kenyon Godwin) Opioid use disorder (Chronic) Active intravenous drug use (Acute) Cellulitis of neck (Acute) Cellulitis of arm, left (Acute) Pulmonary embolism (Acute) Kidney stones (Chronic) Social History Smoking/Tobacco Use Status: Former Tobacco Use Smoking risk assessment performed?: Yes Alcohol Intake: former Drug use: Never Substance use type: marijuana, crack/cocaine and heroin Details: fentanyl last use 7 hour ago 07/21/24 Housing: homeless Do you feel safe at home: Yes Do you feel safe in your relationship?: Yes Time Spent with Patient Time Spent with Patient: <45 minutes Time was spent: preparing to see the patient(eg.review tests), obtaining and/or reviewing separately otained hiistory, ordering medications,tests, procedures, referring, communicating with other health complex care nurse practitioner, indepentently interpreting results, counseling the patient and care coordination
[2024-07-23] MEDS: Apixaban 5 MG TAB 10 MG PO (15:57)
[2024-07-23 16:10] VITALS: BP 171/116; PULSE 98; RESP 18; TEMP 37.1; O2SAT 97
--- NOTE | 2024-07-23 18:56 | CMDISCH_ITS ---
Date of service: 07/23/24 Time of Service: 18:56 LACE Index Scoring Tool Questions: Length of Stay (in days): 2 Was the patient admitted via the E.D.?: Yes E.D. Visits: 0 Answers: Total Score: 5 Risk of Readmission: Low Risk Care Management Discharge Plan Reason for Hospitalization: Cellulites Discharge Plan: Mercedes returned to the community today with no new services. CM sent a referral to [facility] for continued support with insurance and assistance with affording his medications. He will follow up with his PCP and discharge plan of care. Patient/Family Education Needs: Review discharge instructions and limitations, discussion of self care needs including ask me three. SDOH Health Related Social Needs: Health related social needs housing instability, house d, with risk of homelessness (Z59.811), food insecurity (Z59.41), problems related to housing/economic circumstances (Z59.89), problems finding work (Z56.9), problems with daily activities (Z73.9), feeling lonely/isolated (Z60.8)
== END 2024-07-23 16:30 | disposition home or self-care (01) | DRG 176 ==
LOC: ER 08:00 → MS 08:14
PROVIDERS: Emergency Medicine; Admitting Provider General Practice; Emergency Provider Student in an Organized Health Care Education/Training Program; PCP Family Medicine; Responsible Provider Family Medicine; Visit Provider General Practice
DX: I26.99 Other pulmonary embolism without acute cor pulmonale (principal); L03.114 Cellulitis of left upper limb; Z59.811 Housing instability, housed, with risk of homelessness; I82.612 Acute embolism and thrombosis of superficial veins of left upper extremity; I10 Essential (primary) hypertension; N20.0 Calculus of kidney; F11.90 Opioid use, unspecified, uncomplicated; F12.90 Cannabis use, unspecified, uncomplicated; F14.90 Cocaine use, unspecified, uncomplicated; Z59.41 Food insecurity; Z60.8 Other problems related to social environment
CPT/HCPCS: 00123; 36415; 36573; 71275; 76942; 80053; 80307; 83690; 84145; 85652; 87040; 87637; 93005; 93308; 96361; 96365; 96366; 96367; 96375; 96376; 99291; 70450; 74174; 80202; 81003; 81015; 82248; 83880; 84484; 85025; 85610; 85730; 86140; 93010; 93306; 93970; 93971; 99223; 99232; 99239; J0131; J1171; J1644; J3370; J3372; J3490

== ENCOUNTER 2024-07-25 08:53 | Emergency (ER) | payer SELFPAY ==
[2024-07-25] VITALS (8 sets, daily range): BP systolic 161–205; BP diastolic 105–148; PULSE 90–125; RESP 9–18; TEMP 36.6; O2SAT 97–98
--- NOTE | 2024-07-25 09:00 | DI.CT_ITS ---
Exam(s) CT CHEST PE CTA EXAM: CT CHEST PE CTA CLINICAL HISTORY: chest pain, known PE- not on eliquis. TECHNIQUE: Imaging Protocol: CT angiography of the chest was performed using pulmonary embolus kenny col. Multi planar reconstructions were performed. CONTRAST MATERIAL: Intravenous: Omnipaque 350 Contrast volume: 100 cc COMPARISON: CT CT THORAX ABD/PEL CTA from 07/21/2024 FINDINGS: CHEST: PULMONARY ARTERIES: Again noted is the previously described occlusive intraluminal filling defect in subsegmental right pulmonary artery branch in the lateral basal segment of the right lower lobe, ivy lar to previous. Just peripheral to this is again noted a pleural based density consistent with pulm onary infarction.There are no additional intraluminal filling defects seen on today's study. No monik tional new infiltrates. The previously described very small right pleural effusion has resolved. Th ere are no pleural effusions on either side. LUNGS: As above. MEDIASTINUM: There is no hilar nor mediastinal adenopathy. CARDIAC: Heart size remains normal.Caliber of the thoracic aorta is within normal limits. There is no evidence of aortic dissection. There is no significant shift of the interventricular septum. PARTIALLY VISUALIZED UPPERMOST ABDOMEN: No obvious findings OSSEOUS: No significant osseous lesions.. Small hypodensity in the liver is again noted IMPRESSION: 1. Persistent unchanged occlusive right lower lobe pulmonary embolus with small pulmonary infarction as described above in the anterior basal segment of the right lower lobe. There is presently no pleu ral effusion.. 2. No evidence of aortic dissection nor pericardial effusion. RADIATION DOSE DELIVERED: 70.65mGy.cm Total DLP DATA REPOSITORY: All CT scans at this facility are submitted to the National Radiology Data Registry (NRDR) Dose Index Registry (DIR) with the [employer] ([employer]). RADIATION OPTIMIZATION: All CT scans at this facility use at least one of these dose optimization te chniques: automated exposure control; mA and/or kV adjustment per patient size (includes targeted exa ms where dose is matched to clinical indication); or iterative reconstruction.
--- NOTE | 2024-07-25 09:00 | DI.CT_ITS ---
Exam(s) CT CERVICAL SPINE WO EXAM: CT CERVICAL SPINE WO CLINICAL HISTORY: neck pain. TECHNIQUE: Imaging Protocol: Axial computed tomography images with coronal and sagittal reformatted images were created and reviewed COMPARISON: No exams were available for comparison FINDINGS: CERVICAL SPINE: There is no evidence of acute fracture. No significant prevertebral soft tissue swelling. No significant listhesis. Facet arthropathy evident but no significant facet joint malalignment. No significant osseous lesions evident. IMPRESSION: No evidence of cervical spine fracture, malalignment, nor acute compromise of the cervical spinal can al. Report called by myself to ER provider 07/25/2024 at 10:45 RADIATION DOSE DELIVERED: 434.74mGy.cm Total DLP DATA REPOSITORY: All CT scans at this facility are submitted to the National Radiology Data Registry (NRDR) Dose Index Registry (DIR) with the [employer] (ACR). RADIATION OPTIMIZATION: All CT scans at this facility use at least one of these dose optimization te chniques: automated exposure control; mA and/or kV adjustment per patient size (includes targeted exa ms where dose is matched to clinical indication); or iterative reconstruction.
[2024-07-25 09:33] LABS: Abs Immature Grans 0.02 10^3/uL (0.0-0.06); Absolute Basophil Count 0.03 10^3/uL (0.0-0.2); Absolute Eosinophil Count 0.04 10^3/uL (0.0-0.7); Absolute Lymphocyte Count 0.36 10^3/uL (1.2-3.4); Absolute Monocyte Count 0.72 10^3/uL (0.1-0.8); Absolute Neutrophil Count 7.06 10^3/uL (1.2-6.7); Basophils % 0.4 %; Eosinophils % 0.5 %; HCT 38.2 % (40.0-50.0); HGB 12.5 g/dL (13.5-17.5); Immature Grans % 0.2 %; Lymphocytes % 4.4 %; MCH 27.6 pg (27.0-33.0); MCHC 32.7 % (32.0-36.0); MCV 84 fL (80-95); MPV 9.6 fL (8.0-11.0); Monocytes % 8.7 %; Neutrophils % 85.8 %; Platelet Count 293 10^3/uL (130-400); RBC 4.53 10^6/uL (4.36-5.78); RDW 13.1 % (11.8-14.1); WBC 8.23 10^3/uL (4.4-10.8)
[2024-07-25 09:49] LABS: PTT Activated 25.4 sec (20.6-30.2); Prothrombin Time 9.8 sec (9.1-11.1)
[2024-07-25 09:55] LABS: ALT 77 U/L (16-63); AST 67 U/L (15-37); Albumin 3.5 g/dL (3.4-5.0); Alkaline Phosphatase 113 U/L (46-116); Anion Gap 3.3 mmol/L (3-11); BUN 17 mg/dL (7-18); Bilirubin, Total 0.3 mg/dL (0.2-1.0); CO2 33.7 mmol/L (21.0-32.0); Calcium 9.6 mg/dL (8.5-10.1); Chloride 104 mmol/L (98-107); Estimated GFR 93.42 (mL/min/1.73m2); Glucose 111 mg/dL (74-106); NT-proBNP 60 pg/mL (<300); Potassium 4.4 mmol/L (3.5-5.1); Sodium 141 mmol/L (136-145); Troponin I 25 ng/L (<or=76)
[2024-07-25] MEDS: Normal Saline - Diluent 50 ML VIAL IJ (10:04)
[2024-07-25] MEDS: Omnipaque 350 MG/ML 100 ML BTL IJ (10:04)
[2024-07-25] MEDS: Acetaminophen 500 MG TAB 1000 MG PO (10:22)
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
[2024-07-25] MEDS: Apixaban 5 MG TAB 10 MG PO (12:08)
== END 2024-07-25 12:14 ==
PROVIDERS: Emergency Provider Physician Assistant; PCP Family Medicine
DX: T74.11XA Adult physical abuse, confirmed, initial encounter (principal); Z86.711 Personal history of pulmonary embolism; Z87.891 Personal history of nicotine dependence; Y07.040 Female partner, current, perpetrator of maltreatment and neglect
CPT/HCPCS: 71275; 80053; 99285; 72125; 83880; 84484; 85025; 85610; 85730; 99284; J3490